=== PATIENT | male | born 1945 | race Two or more races ===

== ENCOUNTER 2024-03-21 07:44 | Outpatient (OUT) | payer OTHER, SELFPAY ==
--- NOTE | 2024-03-21 08:00 | CA_ITS ---
Patient Name: SANA SNOW MR#: [id number] : 1945 Exam Date: 03/21/2024 Ordering Doctor: HERNANDEZ PATRICIO ECHOCARDIOGRAM REPORT PROCEDURE: CA ECHO DOPPLER COMPLETE INDICATIONS: Mitral valve regurgitation, aortic stenosis, hypertension COMPARISON: None. DESCRIPTION: COMPLETE ECHOCARDIOGRAM Real-time transthoracic echocardiography with 2D, M-mode, spectral and color flow Doppler performed. QUALITY: Technical quality was good. LEFT VENTRICLE: Normal chamber size. Proximal septal hypertrophy (sigmoid septum). Normal systolic function. LV EF: Normal left ventricular ejection fraction, (>55%). DIASTOLIC: Diastolic function is indeterminate. ATRIAL SEPTUM: Visually appears intact. LEFT ATRIUM: Normal chamber size. RIGHT ATRIUM: Mild dilatation. RIGHT VENTRICLE: Normal chamber size. Normal right ventricular systolic function. TRICUSPID VALVE: Normal mobility and thickness. No stenosis with trivial regurgitation. MITRAL VALVE: Normal mobility and thickness. No evidence of mitral valve stenosis. There is no mitral annular calcification. Mild mitral regurgitation. AORTIC VALVE: Cannot rule out bicuspid valve. Moderately calcified aortic valve. Moderately diminished mobility. Doppler velocity suggests moderate aortic valve stenosis. DVI 0.4, REGINA 1.2 cm2 (with corrected measurement of LVOT 1.9 cm). Trivial aortic regurgitation. AORTIC ROOT: Mildly dilated measuring 3.9 cm. Ascending aorta is normal in size, measuring 3.4 cm. PULMONIC VALVE: Normal thickness and mobility. No stenosis. Trivial regurgitation. PERICARDIUM: No evidence of pericardial effusion. IVC: Collapses with inspirations. IVC is normal in size. PLEURA: CONCLUSION: 1. Normal left ventricular size and systolic function. LVEF is estimated at 55 to 60%. 2. Normal right ventricular size and systolic function. 3. Cannot rule out bicuspid aortic valve with at least moderate stenosis. 4. Mild mitral regurgitation. 5. Mildly dilated aortic root. 6. A transesophageal echocardiogram can provide better characterization of the aortic valve morphology and function. Adult Echocardiography Procedure Report Left Ventricle LVEDD (3.7 - 5.6 cm): 4.09 cm LVESD (2.2 - 4.0 cm): 2.29 cm LVIVS thickness (0.6 - 1.2 cm): 1.71 cm LVPW thickness (0.5 - 1.0 cm): 0.82 cm e': 0.08 m/s E - e': 8.43 LVOT Max Gradient: 3.33 mm[Hg] LVOT Area (cm2): 0.91 m/s Peak Velocity (LVOT): 0.91 m/s Mean Velocity (LVOT): 0.61 m/s LVOT Diameter 2.54 cm Left Atrium LA Volume Index (2D A2C): 33.54 ml/m2 Left Atrium Systolic Dimension: 3.85 cm Mitral Valve MV E to A Ratio: 0.88 Mitral Valve A-Wave Peak Velocity: 0.78 m/s Mitral Valve E-Wave Peak Velocity: 0.69 m/s Right Ventricle Aorta AO Root Diam: 3.86 cm Ascending Ao Diam: 3.36 cm Aortic Valve AoV Area (Peak Jorge L): 2.23 cm2, 2.23 cm2 AoV Area (VTI): 2.28 cm2, 2.35 cm2 Peak Velocity(Antegrade Flow): 2.08 m/s, 1.99 m/s, 2.02 m/s Peak Gradient(Antegrade Flow): 17.25 mm[Hg], 15.77 mm[Hg], 16.28 mm[Hg] Mean Velocity(Antegrade Flow): 1.40 m/s, 1.44 m/s, 1.44 m/s Mean Gradient(Antegrade Flow): 9.04 mm[Hg], 9.36 mm[Hg], 9.24 mm[Hg] Velocity Time Integral: 54.42 cm, 49.82 cm, 56.09 cm Tricuspid Valve Pulmonic Valve Mean Gradient: 2.48 mm[Hg], 2.54 mm[Hg], 1.87 mm[Hg] Mean Velocity: 0.73 m/s, 0.73 m/s, 0.65 m/s Peak Gradient: 4.25 mm[Hg], 4.73 mm[Hg], 2.80 mm[Hg] Right Atrium Right Atrium Systolic Pressure: 67.38 ml, 67.38 ml Dictated by: Rene Walton M.D. on 03/21/2024 at 18:32 Approved by: Rene Walton M.D. on 03/21/2024 at 18:41
== END 2024-03-21 07:45 | disposition home or self-care (01) ==
PROVIDERS: PCP Internal Medicine; Visit Provider Nurse Practitioner Adult Health
DX: I09.1 Rheumatic diseases of endocardium, valve unspecified (principal)
CPT/HCPCS: 93306

== ENCOUNTER 2025-04-15 09:54 | Outpatient (OUT) | payer MEDICARE, SELFPAY ==
--- NOTE | 2025-04-15 10:00 | CA_ITS ---
Patient Name: SANA SNOW MR#: [id number] : 1945 Exam Date: 04/15/2025 Ordering Doctor: Dr. STORM ALEJANDRA ECHOCARDIOGRAM REPORT PROCEDURE: CA ECHO DOPPLER COMPLETE INDICATIONS: Aortic valve stenosis COMPARISON: None. DESCRIPTION: COMPLETE ECHOCARDIOGRAM Real-time transthoracic echocardiography with 2D, M-mode, spectral and color flow Doppler performed. QUALITY: Technical quality was good. LEFT VENTRICLE: Normal chamber size. Thickened septal wall. LV EF: Global left ventricular systolic function is hyperdynamic; visually estimated ejection fraction is 65 to 70%. No wall motion abnormalities. DIASTOLIC: Unable to assess diastolic function. ATRIAL SEPTUM: Visually appears intact. LEFT ATRIUM: Normal chamber size. RIGHT ATRIUM: Normal chamber size. RIGHT VENTRICLE: Normal chamber size. Normal right ventricular systolic function. TRICUSPID VALVE: Normal mobility and thickness. No stenosis with trivial regurgitation. Unable to accurately estimate right ventricular systolic pressure due to faint tricuspid regurgitation signal. MITRAL VALVE: Normal mobility and thickness. No evidence of mitral valve stenosis. There is no mitral annular calcification. Trivial mitral regurgitation. AORTIC VALVE: The valve is probably tricuspid. Severely calcified aortic valve with diminished mobility. Doppler velocity suggest mild aortic valve stenosis. DVI 0.4, Vmax 2.08 m/s, mean/max 9.6/17.3 mmHg. Trivial aortic regurgitation. AORTIC ROOT: Normal diameter and appearance. Ascending aorta and aortic arch are normal in size. PULMONIC VALVE: Normal thickness and mobility. No stenosis. No regurgitation. PERICARDIUM: No evidence of pericardial effusion. IVC: Collapses with inspiration. CONCLUSION: 1. Global left ventricular systolic function is hyperdynamic; visually estimated ejection fraction is 65 to 70% 2. Normal right ventricular size and systolic function 3. Unable to assess diastolic function 4. The left atrium is normal in size 5. Mild aortic valve stenosis Adult Echocardiography Procedure Report Left Ventricle LVEDD (3.7 - 5.6 cm): 3.73 cm LVESD (2.2 - 4.0 cm): 2.57 cm LVIVS thickness (0.6 - 1.2 cm): 1.80 cm LVPW thickness (0.5 - 1.0 cm): 0.94 cm e': 0.07 m/s E - e': 10.59 LVOT Max Gradient: 3.13 mm[Hg] LVOT Area (cm2): 0.89 m/s Peak Velocity (LVOT): 0.89 m/s Mean Velocity (LVOT): 0.51 m/s LVOT Diameter 1.87 cm Left Ventricular Ejection Fraction: 68.08 % Left Atrium LA Volume Index (2D A2C): 31.73 ml/m2 Left Atrium Systolic Dimension: 3.94 cm Mitral Valve MV E to A Ratio: 0.82 Mitral Valve A-Wave Peak Velocity: 0.87 m/s Mitral Valve E-Wave Peak Velocity: 0.71 m/s Right Ventricle Aorta AO Root Diam: 3.79 cm Ascending Ao Diam: 3.28 cm Aortic Valve AoV Area (Peak Jorge L): 1.17 cm2, 1.33 cm2 AoV Area (VTI): 1.13 cm2, 1.54 cm2 Peak Velocity(Antegrade Flow): 1.84 m/s, 2.08 m/s Peak Gradient(Antegrade Flow): 13.55 mm[Hg], 17.29 mm[Hg] Mean Velocity(Antegrade Flow): 1.19 m/s, 1.42 m/s Mean Gradient(Antegrade Flow): 6.60 mm[Hg], 9.62 mm[Hg] Velocity Time Integral: 39.65 cm, 54.21 cm Tricuspid Valve Peak Velocity (Regurgitant Flow): 2.03 m/s Pulmonic Valve Mean Gradient: 1.74 mm[Hg], 1.84 mm[Hg] Mean Velocity: 0.62 m/s, 0.65 m/s Peak Gradient: 3.16 mm[Hg], 3.03 mm[Hg] Right Atrium Dictated by: Yoanna Madison M.D. on 04/15/2025 at 15:07 Approved by: Yoanna Madison M.D. on 04/15/2025 at 15:19
--- OUTSIDE RECORDS SUMMARY | 2025-04-15 10:01 | XMS_ITS | CCD ---
Author Organization [facility] Care Team Providers Care Regional Branch Manager Name Role Phone MD Niels Barbosa Attending Provider [phone] Niels Barbosa Admitting Unavailable Niels Barbosa Attending Unavailable Alana Milligan DO Unavailable [phone] Alana Milligan DO Primary Care Provider [phone] Melissa Parikh MD Unavailable Margo Sigala DO Unavailable ALANA MILLIGAN Primary Care Physician [phone] Margo Sigala Admitting Unavailable Sigala, Margo Mcgowan Attending Unavailable Sigala, Margo T Referring Unavailable Sigala, Margo T Admitting Unavailable Sigala, Margo Mcgowan Attending Unavailable Sigala, Margo Mcgowan Referring Unavailable SIGALA, MARGO Mcgowan Referring Unavailable PETITTI, MELISSA Seaman Attending Unavailable ALANA MILLIGAN Attending Unavailable SIGALA, MARGO Mcgowan Attending Unavailable SIGALA, MARGO T Referring Unavailable SIGALA, MARGO Mcgowan Attending Unavailable SIGALA, MARGO T Referring Unavailable WARCHOL, DAYSI Attending Unavailable SIGALA, MARGO Mcgowan Attending Unavailable SIGALA, MARGO Mcgowan Referring Unavailable PETITTI, MELISSA Seaman Attending Unavailable SIGALA, MARGO Mcgowan Attending Unavailable SIGALA, MARGO T Referring Unavailable SIGALA, MARGO T Referring Unavailable SIGALA, MARGO Mcgowan Attending Unavailable Medications Current Medications MedicationDrug Class(es)DatesSig (Normalized)Sig (Original)amLODIPine 10 mg oral tablet (20 sources)Dihydropyridine Calcium Channel BlockerStart: 59-57-2653gdpk 1 tablet by mouth once dailyamLODIPine (Norvasc) 10 MG tablet Indications: Primary hypertension TAKE 1 TABLET BY MOUTH EVERY DAY FOR 90 DAYS 90 tablet 3 05/01/2024 ActiveStart: 25-75-0194wlry 1 tablet by mouth once dailyamLODIPine (Norvasc) 10 MG tablet Indications: Primary hypertension (CMS/HCC) TAKE 1 TABLET BY MOUTH EVERY DAY FOR 90 DAYS 90 tablet 3 05/12/2023 Activecholecalciferol 0.05 mg oral capsule (20 sources)Vitamin DStart: 10-67-3909Qwennmliscwiyox (Vitamin D) 50 MCG (1999) capsule 1 capsule. 01/28/2022 Activeeplerenone 50 mg oral tablet (20 sources)Aldosterone AntagonistStart: 33-26-4237ggjf 1 tablet by mouth at mealtimeeplerenone (Inspra) 50 MG tablet Indications: Essential (primary) hypertension TAKE 1 TABLET BY MOUTH IN THE EVENING. TAKE WITH MEALS. 90 tablet 3 03/05/2024 ActivehydroCHLOROthiazide 25 mg / telmisartan 80 mg oral tablet (20 sources)Thiazide Diuretic, Angiotensin 2 Receptor BlockerStart: 01-06-2025 take 1 tablet by mouth once daily in the morningtelmisartan-hydroCHLOROthiazide (MIcarDIS HCT) 80-25 MG tablet Indications: Hypertension, unspecified type TAKE 1 TABLET BY MOUTH EVERY DAY IN THE MORNING 90 tablet 2 01/06/2025 ActiveStart: 80-80-9583ycvz 1 tablet by mouth once daily in the morningtelmisartan- hydroCHLOROthiazide (MIcarDIS HCT) 80-25 MG tablet Indications: Hypertension, unspecified type TAKE 1 TABLET BY MOUTH EVERY DAY IN THE MORNING 90 tablet 2 02/12/2024 Activepravastatin sodium 40 mg oral tablet (20 sources)HMG-CoA Reductase InhibitorStart: 68-82-3405htuo 1 tablet by mouth at bedtimepravastatin (Pravachol) 40 MG tablet Indications: Dyslipidemia Take 1 tablet (40 mg) by mouth at bedtime 90 tablet 3 07/10/2024 ActiveStart: 08-04-3814vzwf 1 tablet by mouth once dailypravastatin (Pravachol) 40 MG tablet Indications: Dyslipidemia (CMS/HCC) TAKE 1 TABLET BY MOUTH EVERY DAY FOR 90 DAYS 90 tablet 3 07/31/2023 Active Completed/Discontinued Medications MedicationDrug Class(es)DatesSig (Normalized)Sig (Original)betamethasone 3 mg/ml / betamethasone acetate 3 mg/ml injectable suspension (8 sources)CorticosteroidStart: 05-15-2024 End: 83-68-8633wkqkequpkuvaw acetate-betamethasone sodium phosphate (Celestone) injection 3 mgStart: 05-15-2024 End: mg, Intra-articular, Once PRN Procedure, Starting on Mon05/15/24 at 1007, For 1 dose Problems Active Problems Problem ClassificationProblemDateDocumented DateEpisodic/ChronicDisorders of lipid metabolism (20 sources)Dyslipidemia; Translations: [Hyperlipidemia, unspecified]Onset: 066711-35-3749ZhzmnumF Codes: Unspecified (2 sources)Does participate in sporting activities; Translations: [Activity, running]96-05-8860LaljejbgWqehgjmok hypertension (20 sources)Essential hypertension; Translations: [Essential (primary) hypertension]Onset: 487616-32-6125MfxrmxeActew valve disorders (20 sources)Rheumatic disease of heart valve; 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, valve unspecified]Onset: 03-06-2023 Resolved: 462892-14-8214JakthsaZpxrajzzw of skin (20 sources)Malignant melanoma of shoulder; Translations: [Malignant melanoma of unspecified upper limb, including shoulder]Onset: hronic Melanomas of skin (5 sources)History of malignant melanoma of the skin; Translations: [Personal history of malignant melanoma ofskin]70-49-3652JtvgdvdsAlmteewkymz deficiencies (2 sources)Vitamin D deficiency; Translations: [Vitamin D deficiency, unspecified]41-11-0128ZlolqntTmuac and unspecified benign neoplasm (4 sources)Multiple benign melanocytic nevi ; Translations: [Melanocytic nevi of right upper limb, including shoulder]36-15-3933KhghkvdlPewbq connective tissue disease (10 sources)Pain of bilateral hands; Translations: [Pain in right hand] 48-31-1051LilqycnsNyhwb connective tissue disease (2 sources)Pain in right thumb; Translations: [Pain in right finger(s)] 37-09-5564OzknbxtmDqjld non-traumatic joint disorders (4 sources)Bilateral wrist pain; Translations: [Pain in right wrist]07-26-2024 EpisodicOther skin disorders (5 sources)Lentiginosis; Translations: [Other melanin hyperpigmentation] 34-02-6490VogtobotVatyx skin disorders (5 sources)Seborrheic keratosis; Translations: [Other seborrheic keratosis] 06-31-4043WsnvbupbLuqhh skin disorders (5 sources)Actinic keratosis; Translations: [Actinic keratosis]2024 EpisodicUnclassified (1 source)Malignant melanoma of right upper limb, including shoulder; Translations: [Malignant melanoma of right upper limb, including shoulder]Onset: 42-36-0704Uftpghfkxxgi (2 sources)Moderate aortic -90-5113 Past or Other Problems Problem ClassificationProblemDateDocumented DateEpisodic/ChronicImmunizations and screening for infectious disease (20 sources)Needs influenza immunization; Translations: [Encounter for immunization]Onset: 03-25-2023 Resolved: 391860-76-9962PzshpamxHzjn disorders (20 sources)Mood disordersOnset: 117891-42-1390Zyupqcxrqprneh (20 sources)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; Translations: [Unilateral primary osteoarthritis of first carpometacarpal joint, left hand] Onset: 03-19-2024 Resolved: 487895-26-0405UciyrsxRvfyi and ill-defined heart disease (20 sources)Diastolic dysfunction; Translations: [Other ill-defined heart diseases]Onset: 08-14-2018 Resolved: 763462-61-6593VqylxikOtwem non-epithelial cancer of skin (20 sources)Squamous cell carcinoma of skin; Translations: [Squamous cell carcinoma of skin, unspecified]Onset: 01-27-2021 Resolved: 966353-40-7934DmntvzqmAalpokz and strains (20 sources)Injury of articular cartilage of left knee joint; Translations: [Sprain of other specified parts ofleft knee, initial encounter]Onset: 11-27-2022 Resolved: 832439-30-7513Khvyrrum Results Test NameValueInterpretationReference RangeFacilityCryotherapy, skin lesionon 22-64-8574ZYMS HealthcareXR Finger - right 2 Viewson 51-75-5660Bdyubpv Result: Three view ,AP, lateral and oblique left wrist xray in the office saved to the permanent record today. Shows stable position and alignment of the bony arthroplasty and graft position. No sign of instability. No significant shortening. Images reviewed with the patient at length.[facility] HospitalRadiology Study observation (narrative)[facility] XR Finger - right 2 Viewson 17-08-8428Sowjtuh Result: Three view x-rays, AP, lateral and oblique views saved to the permanent record shows stable position and alignment of the interpositional. There is no sign of subluxation or dislocation or loosening seen.[facility] CenterXR Finger - right 2 ViewsOrdered By: Margo Sigala on 76-14-7631DKIVMercy Hospital South, formerly [facility] Work Phone: XR Finger - right 2 Viewson 63-76-4679Dypqlfxji Study observation (narrative)[facility] CenterNo Panel Informationon 75-97-0430MHJJMercy Hospital [facility], [facility] Medical CenterXR Finger - right 2 Viewson 68-87-7328Ocpfuii Result: Three view ,AP, lateral and oblique wrist xray in the office saved to the permanent record today. Shows stable position and alignment of the bony arthroplasty and graft position. No sign of instability. No significant shortening. Images reviewed with the patient at length.[facility] HospitalRadiology Study observation (narrative)[facility] Medical CenterBMPon 07-29-2024 Anion gap [Moles/Vol]11 mmol/LNormal6-16[facility]cy Medical CenterComment on above:Performed By: #### [id number] #### [facility] [address], [place] [address]Kaxvrxo [Mass/Vol]10.0 mg/dLNormal8.9-11.1[facility] Medical CenterComment on above:Performed By: #### [id number] #### [facility] [address], [place] [address]Gvxcccju [Moles/Vol]100 mmol/CRiy447-621MNVV HealthcareComment on above:Performed By: #### [id number] #### [facility] [address], [place] [address]US2 [Moles/Vol]29 mmol/XEowcpm21-16AONX HealthcareComment on above:Performed By: #### [id number] #### [facility] [address], [place] [address]Cjcxtnqllh [Mass/Vol]0.9 mg/dLNormal0.5-1.3NOMS [facility] Comment on above:Performed By: #### [id number] #### [facility] [address], [place] [address]Ygeacdu [Mass/Vol]108 mg/dPUsmocv75-529UOPY HealthcareComment on above:Performed By: #### [id number] #### [facility] [address], [place] [address]Uqgntsink [Moles/Vol]4.1 mmol/LNormal3.5-5.3[facility] Comment on above:Performed By: #### [id number] #### [facility] [address], [place] [address]Uggpsc [Moles/Vol]136 mmol/YZpnfjl070-782AGNN HealthcareComment on above:Performed By: #### [id number] #### [facility] [address], [place] [address]Cfmm nitrogen [Mass/Vol]25 mg/dLHigh5-21NOMS HealthcareComment on above:Performed By: #### [id number] #### [facility] [address], [place] [address]Rkpa nitrogen/Creatinine [Mass ratio]28 No VhrybIbuc70-34FqafvaSt. Rita'S HospitalComment on above:Performed By: #### [id number] #### [facility] [address], [place] [address]YFB w/Indiceson 24-92-9283HOC size Nom (Bld)NORMALInvalid Interpretation CodeSt. Rita'S HospitalComment on above:Performed By: #### [id number] #### [facility] [address], [place] [address]Opsollijcnj distribution width (RBC) [Ratio]13.2 %Normal 10.9-14.2[facility] Medical CenterComment on above:Performed By: #### [id number] #### [facility] [address], [place] [address]Ymgrbsanfx (Bld) [Volume fraction]40.6 %Yfbhyk90.7-49.0[facility]'S HospitalComment on above:Performed By: #### [id number] #### [facility] [address], [place] [address]Jepubaqahg (Bld) [Mass/Vol]14.5 g/bRPrwenx21.5-17.5FHarrison Community HospitalComment on above:Performed By: #### [id number] #### [facility] [address] [place] [address]PNF (RBC) [Entitic mass]33.3 xkXzdrgm32.0-34.0St[facility]'S HospitalComment on above:Performed By: #### [id number] #### [facility] [address] [place] [address]EAEL (RBC) [Mass/Vol]35.8 g/aAVhqckm63.4-36.0[facility] HospitalComment on above:Performed By: #### [id number] #### [facility] [address] [place] [address]GBJ (RBC) [Entitic vol]93.0 nTLcwywe75.0-100.0[facility] HospitalComment on above:Performed By: #### [id number] #### [facility] [address] [place] [address]Spsguyne309.0 E9/RFnlcvv129.0-500.0[facility] Comment on above:Performed By: #### [id number] #### [facility] [address] [place] [address]Rrhhskrw mean volume (Bld) [Entitic vol]7.3 fLNormal6.4-10.8 [facility] HospitalComment on above:Performed By: #### [id number] #### [facility] [address] [place] [address]JVI (Bld) [#/Vol]4.4 E12/LNormal4.3-5.9[facility] HospitalComment on above:Performed By: #### [id number] #### [facility] [address], [place] [address]HFH corrected for nucl RBC Auto (Bld) [#/Vol]9.6 E9/LNormal 4.0-11.0[facility] HospitalComment on above:Performed By: #### [id number] #### [facility] [address], [place] [address]LHEMUNKXTMrqrslm By: SYSTEM SYSTEM on 70-74-6083Rxphf gap [Moles/Vol]11 mmol/LNormal6 - 16 mEq/LRemisol ChemCalcium [Mass/Vol]10.0 mg/dL Normal8.9 - 11.1 mg/dLRemisol ChemChloride [Moles/Vol]100 mmol/QZps630 - 111 mmol/LRemisol ChemCO2 [Moles/Vol]29 mmol/HQxkqmi54 - 31 mmol/LRemisol Chem Creatinine [Mass/Vol]0.9 mg/dLNormal0.5 - 1.3 mg/dLRemisol UgadgDPE77 mL/min/1.73 k6Mtmutq>=59mL/min/1.73 j1Ypbzlwk ChemGlucose [Mass/Vol]108 mg/dL Nucsun69 - 199 mg/dLRemisol ChemPotassium [Moles/Vol]4.1 mmol/LNormal3.5 - 5.3 mmol/LRemisol ChemSodium [Moles/Vol]136 mmol/PMfoqim907 - 145 mmol/LRemisol Chem Urea nitrogen [Mass/Vol]25 mg/dLHigh5 - 21 mg/dLRemisol ChemUrea nitrogen/Creatinine [Mass ratio]28 mg/mhZvsv07 - 20Remisol ChemFTMC BMPon 41-55-2395Fiotkat [Mass/Vol]10 mg/dL8.9 - 11.1 mg/dLBarn[facility] ANION GAP:SCNC:PT:SER/PLAS:QN:11NOCedar [facility] UREA NITROGEN/CREATININE:MRTO:PT:SER/PLAS:QN:28HighLDS HOSPITAL HealthcareInterpretation and review of laboratory resultsAbnormalNOMissouri Delta Medical Centeral Ordering Provider: DO Margo Arguelles HealthcareHEMATOLOGYOrdered By: SYSTEM SYSTEM on 38-11-2080Lsgzbygvmzh distribution width (RBC) [Ratio]13.2 %Hbegwx41.9 - 14.2 %Remisol HemeHematocrit (Bld) [Volume fraction]40.6 %Xvzpam47.7 - 49.0 %Remisol HemeHemoglobin (Bld) [Mass/Vol]14.5 g/aEEkoqtv23.5 - 17.5 gm/dLRemisol HemeMCH (RBC) [Entitic mass]33.3 beSxzgov29.0 - 34.0 pgRemisol HemeMCHC (RBC) [Mass/Vol] 35.8 g/cWYkayeg02.4 - 36.0 gm/dLRemisol HemeMCV (RBC) [Entitic vol]93.0 fLNormal 80.0 - 100.0 fLRemisol HqitKwztbkxo746.0 E9/EVtdhte933.0 - 500.0 E9/LRemisol HemePlatelet mean volume (Bld) [Entitic vol]7.3 fLNormal6.4 - 10.8 fLRemisol HemeRBC (Bld) [#/Vol]4.4 E12/LNormal4.3 - 5.9 E12/LRemisol HemeRBC size Nom (Bld)NORMAL *NA* (07/29/24 3:34 PM)Invalid Interpretation CodeRemisol HemeWBC corrected for nucl RBC Auto (Bld) [#/Vol]9.6 E9/LNormal4.0 - 11.0 E9/LRemisol HemeeGFRon 07-29-2024 eGFR86 mL/min/1.73 c5Otnptg>=59Fisher [facility] Medical CenterComment on above: Performed By: #### [id number] #### [facility] [address] [place], [place] [address]Ph Panel Informationon 29-64-7914Nhfvii Smith, [place] 05/16/2024 4:32 PM S Inj/Asp: bilateral thumb MCP on 05/15/2024 10:07 AM Details: 25 G needle, ultrasound-guided Medications (Right): 3 mg betamethasone acetate-betamethasone sodium phosphate 6 (3-3) MG/ML Medications (Left): 3 mg betamethasone acetate-betamethasone sodium phosphate 6 (3-3) MG/ML Outcome: tolerated well, no immediate complications Consent was given by the patient. WON BeckerTN ECHO DOPPLER COMPLETEon 76-52-7682EcyStephanie V[place] [id number] Cardiology Report Signed Patient: JESI MONTES MR#: [id number] : 1945 Acct:[id number] Age/Sex: 79 / M ADM Date: 03/21/24 Loc: CARD Attending Dr: Hernandez Patricio NP Ordering Physician: Hernandez Patricio NP Date of Service: 03/21/24 Procedure(s): CA echo doppler complete Accession Number(s): [id number] cc: Hernandez Patricio NP; ALANA MILLIGAN Patient Name: JESI MONTES MR#: [id number] : 1945 Exam Date: 03/21/2024 Ordering Doctor: HERNANDEZ PATRICIO ECHOCARDIOGRAM REPORT PROCEDURE: CA ECHO DOPPLER COMPLETE INDICATIONS: Mitral valve regurgitation, aortic stenosis, hypertension COMPARISON: None. DESCRIPTION: COMPLETE ECHOCARDIOGRAM Real-time transthoracic echocardiography with 2D, M-mode, spectral and color flow Doppler performed. QUALITY: Technical quality was good. LEFT VENTRICLE: Normal chamber size. Proximal septal hypertrophy (sigmoid septum). Normal systolic function. LV EF: Normal left ventricular ejection fraction, (>55%). DIASTOLIC: Diastolic function is indeterminate. ATRIAL SEPTUM: Visually appears intact. LEFT ATRIUM: Normal chamber size. RIGHT ATRIUM: Mild dilatation. RIGHT VENTRICLE: Normal chamber size. Normal right ventricular systolic function. TRICUSPID VALVE: Normal mobility and thickness. No stenosis with trivial regurgitation. MITRAL VALVE: Normal mobility and thickness. No evidence of mitral valve stenosis. There is no mitral annular calcification. Mild mitral regurgitation. AORTIC VALVE: Cannot rule out bicuspid valve. Moderately calcified aortic valve. Moderately diminished mobility. Doppler velocity suggests moderate aortic valve stenosis. DVI 0.4, REGINA 1.2 cm2 (with corrected measurement of LVOT 1.9 cm). Trivial aortic regurgitation. AORTIC ROOT: Mildly dilated measuring 3.9 cm. Ascending aorta is normal in size, measuring 3.4 cm. PULMONIC VALVE: Normal thickness and mobility. No stenosis. Trivial regurgitation. PERICARDIUM: No evidence of pericardial effusion. IVC: Collapses with inspirations. IVC is normal in size. PLEURA: CONCLUSION: 1. Normal left ventricular size and systolic function. LVEF is estimated at 55 to 60%. 2. Normal right ventricular size and systolic function. 3. Cannot rule out bicuspid aortic valve with at least moderate stenosis. 4. Mild mitral regurgitation. 5. Mildly dilated aortic root. 6. A transesophageal echocardiogram can provide better characterization of the aortic valve morphology and function. Adult Echocardiography Procedure Report Left Ventricle LVEDD (3.7 - 5.6 cm): 4.09 cm LVESD (2.2 - 4.0 cm): 2.29 cm LVIVS thickness (0.6 - 1.2 cm): 1.71 cm LVPW thickness (0.5 - 1.0 cm): 0.82 cm e': 0.08 m/s E - e': 8.43 LVOT Max Gradient: 3.33 mm[Hg] LVOT Area (cm2): 0.91 m/s Peak Velocity (LVOT): 0.91 m/s Mean Velocity (LVOT): 0.61 m/s LVOT Diameter 2.54 cm Left Atrium LA Volume Index (2D A2C): 33.54 ml/m2 Left Atrium Systolic Dimension: 3.85 cm Mitral Valve MV E to A Ratio: 0.88 Mitral Valve A-Wave Peak Velocity: 0.78 m/s Mitral Valve E-Wave Peak Velocity: 0.69 m/s Right Ventricle Aorta AO Root Diam: 3.86 cm Ascending Ao Diam: 3.36 cm Aortic Valve AoV Area (Peak Jorge L): 2.23 cm2, 2.23 cm2 AoV Area (VTI): 2.28 cm2, 2.35 cm2 Peak Velocity(Antegrade Flow): 2.08 m/s, 1.99 m/s, 2.02 m/s Peak Gradient(Antegrade Flow): 17.25 mm[Hg], 15.77 mm[Hg], 16.28 mm[Hg] Mean Velocity(Antegrade Flow): 1.40 m/s, 1.44 m/s, 1.44 m/s Mean Gradient(Antegrade Flow): 9.04 mm[Hg], 9.36 mm[Hg], 9.24 mm[Hg] Velocity Time Integral: 54.42 cm, 49.82 cm, 56.09 cm Tricuspid Valve Pulmonic Valve Mean Gradient: 2.48 mm[Hg], 2.54 mm[Hg], 1.87 mm[Hg] Mean Velocity: 0.73 m/s, 0.73 m/s, 0.65 m/s Peak Gradient: 4.25 mm[Hg], 4.73 mm[Hg], 2.80 mm[Hg] Right Atrium Right Atrium Systolic Pressure: (more content not included)...TBHRadiology, Radiologist, MD - 03/21/2024 [place] [address] Cardiology Report Signed Patient: JESI MONTES MR#: [id number] : 1945 Acct:[id number] Age/Sex: 79 / M ADM Date: 03/21/24 Loc: CARD Attending Dr: Hernandez Patricio NP Ordering Physician: Hernandez Patricio NP Date of Service: 03/21/24 Procedure(s): CA echo doppler complete Accession Number(s): [id number] cc: Hernandez Patricio NP; ALANA MILLIGAN Patient Name: JESI MONTES MR#: [id number] : 1945 Exam Date: 03/21/2024 Ordering Doctor: HERNANDEZ PATRICIO ECHOCARDIOGRAM REPORT PROCEDURE: CA ECHO DOPPLER COMPLETE INDICATIONS: Mitral valve regurgitation, aortic stenosis, hypertension COMPARISON: None. DESCRIPTION: COMPLETE ECHOCARDIOGRAM Real-time transthoracic echocardiography with 2D, M-mode, spectral and color flow Doppler performed. QUALITY: Technical quality was good. LEFT VENTRICLE: Normal chamber size. Proximal septal hypertrophy (sigmoid septum). Normal systolic function. LV EF: Normal left ventricular ejection fraction, (>55%). DIASTOLIC: Diastolic function is indeterminate. ATRIAL SEPTUM: Visually appears intact. LEFT ATRIUM: Normal chamber size. RIGHT ATRIUM: Mild dilatation. RIGHT VENTRICLE: Normal chamber size. Normal right ventricular systolic function. TRICUSPID VALVE: Normal mobility and thickness. No stenosis with trivial regurgitation. MITRAL VALVE: Normal mobility and thickness. No evidence of mitral valve stenosis. There is no mitral annular calcification. Mild mitral regurgitation. AORTIC VALVE: Cannot rule out bicuspid valve. Moderately calcified aortic valve. Moderately diminished mobility. Doppler velocity suggests moderate aortic valve stenosis. DVI 0.4, REGINA 1.2 cm2 (with corrected measurement of LVOT 1.9 cm). Trivial aortic regurgitation. AORTIC ROOT: Mildly dilated measuring 3.9 cm. Ascending aorta is normal in size, measuring 3.4 cm. PULMONIC VALVE: Normal thickness and mobility. No stenosis. Trivial regurgitation. PERICARDIUM: No evidence of pericardial effusion. IVC: Collapses with inspirations. IVC is normal in size. PLEURA: CONCLUSION: 1. Normal left ventricular size and systolic function. LVEF is estimated at 55 to 60%. 2. Normal right ventricular size and systolic function. 3. Cannot rule out bicuspid aortic valve with at least moderate stenosis. 4. Mild mitral regurgitation. 5. Mildly dilated aortic root. 6. A transesophageal echocardiogram can provide better characterization of the aortic valve morphology and function. Adult Echocardiography Procedure Report Left Ventricle LVEDD (3.7 - 5.6 cm): 4.09 cm LVESD (2.2 - 4.0 cm): 2.29 cm LVIVS thickness (0.6 - 1.2 cm): 1.71 cm LVPW thickness (0.5 - 1.0 cm): 0.82 cm e': 0.08 m/s E - e': 8.43 LVOT Max Gradient: 3.33 mm[Hg] LVOT Area (cm2): 0.91 m/s Peak Velocity (LVOT): 0.91 m/s Mean Velocity (LVOT): 0.61 m/s LVOT Diameter 2.54 cm Left Atrium LA Volume Index (2D A2C): 33.54 ml/m2 Left Atrium Systolic Dimension: 3.85 cm Mitral Valve MV E to A Ratio: 0.88 Mitral Valve A-Wave Peak Velocity: 0.78 m/s Mitral Valve E-Wave Peak Velocity: 0.69 m/s Right Ventricle Aorta AO Root Diam: 3.86 cm Ascending Ao Diam: 3.36 cm Aortic Valve AoV Area (Peak Jorge L): 2.23 cm2, 2.23 cm2 AoV Area (VTI): 2.28 cm2, 2.35 cm2 Peak Velocity(Antegrade Flow): 2.08 m/s, 1.99 m/s, 2.02 m/s Peak Gradient(Antegrade Flow): 17.25 mm[Hg], 15.77 mm[Hg], 16.28 mm[Hg] Mean Velocity(Antegrade Flow): 1.40 m/s, 1.44 m/s, 1.44 m/s Mean Gradient(Antegrade Flow): 9.04 mm[Hg], 9.36 mm[Hg], 9.24 mm[Hg] Velocity Time Integral: 54.42 cm, 49.82 cm, 56.09 cm Tricuspid Valve Pulmonic Valve Mean Gradient: 2.48 mm[Hg], 2.54 mm[Hg], 1.87 mm[Hg] Mean Velocity: 0.73 m/s, 0.73 m/s, 0.65 m/s Peak Gradient: 4.25 mm[Hg], 4.73 mm[Hg], 2.80 mm[Hg] Right Atrium Right Atrium Systolic Pressure: 67.38 ml, 67.38 ml Dictated by: Anabella Navarro M.D. on 03/21/2024 at 18:32 Approved by: Anabella Navarro M.D. on 03/21/2024 at 18:41 Dictated By: ANABELLA NAVARRO Signed By: 03/21/241841 DD/ 40 TD/TT: Leather Etcher: [facility] CenterRadiology Study observation (narrative)[facility] ECHO DOPPLER COMPLETEOrdered By: Radiologist Radiology on 67-81-6580ZDATMercy Hospital South, formerly [facility] Work Phone: cbc W Auto Differential panel (Bld)on 03-20-2024 Basophils (Bld) [#/Vol]0 10*3/uLNOMS HealthcareBasophils/100 WBC (Bld)1 %Not Estab.[facility] CenterEosinophils (Bld) [#/Vol]0 10*3/uLNOMS Healthcare Eosinophils/100 WBC (Bld)0 %Not Estab.[facility] Medical CenterErythrocyte distribution width (RBC) [Ratio]11.8 %11.6 - 15.4 %[facility] CenterHematocrit (Bld) [Volume fraction]43 %37.5 - 51.0 %[facility] CenterHemoglobin (Bld) [Mass/Vol]14.6 g/dL 13.0 - 17.7 g/dLNOMS HealthcareImmature granulocytes (Bld) [#/Vol]0 10*3/uLNOMS HealthcareImmature granulocytes/100 WBC (Bld)0 %Not Estab.[facility] Center Lymphocytes (Bld) [#/Vol]1.7 10*3/uLNOMS HealthcareLymphocytes/100 WBC (Bld)24 % Not Estab.[facility] CenterMCH (RBC) [Entitic mass]32.7 pg26.6 - 33.0 pgMercy [facility], formerly [facility] [facility]'s Medical CenterMCHC (RBC) [Mass/Vol]34 g/dL31.5 - 35.7 g/dLSaint Joseph Hospital WestV (RBC) [Entitic vol]96 fL79 - 97 fLLDS HOSPITAL HealthcareMonocytes (Bld) [#/Vol]0.6 10*3/uL [facility] HealthcareMonocytes/100 WBC (Bld)9 %Not Estab.[facility] HealthcareNeutrophils (Bld) [#/Vol]4.5 10*3/uLNONH HealthcareNeutrophils/100 WBC (Bld)66 %Not Estab. [facility] HealthcarePlatelets (Bld) [#/Vol]283 10*3/uLNONH HealthcareRBC (Bld) [#/Vol]4.47 10*6/uLNONH HealthcareWBC (Bld) [#/Vol]6.8 10*3/uLMercy Hospital [facility], formerly [facility] Comprehensive metabolic panelon 06-53-2308Pokeefr [Mass/Vol]4.8 g/dLHigh3.7 - 4.7 g/dLLDS [facility] HealthcareALP [Catalytic activity/Vol]97 U/LNOMS HealthcareALT [Catalytic activity/Vol]29 U/LNOMS HealthcareAST [Catalytic activity/Vol]27 U/L [facility] HealthcareBilirubin [Mass/Vol]0.5 mg/dL0.0 - 1.2 mg/dLMercy Hospital [facility], [facility] Calcium [Mass/Vol]9.8 mg/dL8.6 - 10.2 mg/dLLDS [facility] HealthcareChloride [Moles/Vol] 101 mmol/L96 - 106 mmol/LNOMS HealthcareCO2 [Moles/Vol]23 mmol/L20 - 29 mmol/L [facility] HealthcareCreatinine [Mass/Vol]0.92 mg/dL0.76 - 1.27 mg/dLMercy Hospital [facility], formerly [facility] GFR/1.73 sq M.predicted among non-blacks MDRD (S/P/Bld) [Vol rate/Area]84 mL/min/{1.73_m2}59 - PINF mL/min/1.73NOMS HealthcareGlobulin (S) [Mass/Vol]2.5 g/dL1.5 - 4.5 g/dLNONH HealthcareGlucose [Mass/Vol]104 mg/mGEhti06 - 99 mg/dL [facility] HealthcareInterpretation and review of laboratory resultsAbnormalNOMS HealthcarePotassium [Moles/Vol]4 mmol/L3.5 - 5.2 mmol/LNOMS HealthcareProtein [Mass/Vol]7.3 g/dL6.0 - 8.5 g/dLNONH HealthcareSodium [Moles/Vol]138 mmol/L134 - 144 mmol/LNOMS HealthcareUrea nitrogen [Mass/Vol]16 mg/dL8 - 27 mg/dLNONH HealthcareUrea nitrogen/Creatinine [Mass ratio]17 mg/mg10 - 24NOJohn J. [facility] Lipid 1996 panelon 94-14-9881Ujdhedgeihg [Mass/Vol]173 mg/dL100 - 199 mg/dLNOJohn J. Pershing VA Medical CenterCholesterol in HDL [Mass/Vol]71 mg/dL39 - PINF mg/dLNOJohn J. [facility] Cholesterol in LDL [Mass/Vol]86 mg/dL0 - 99 mg/dLNOJohn J. Pershing VA Medical CenterCholesterol in VLDL [Mass/Vol]16 mg/dL5 - 40 mg/dLNOJohn J. Pershing VA Medical CenterTriglyceride [Mass/Vol]87 mg/dL0 - 149 mg/dLMercy Hospital [facility], formerly [facility]. [facility]'s Medical CenterNo Panel Informationon 37-10-6518Onbvoosvr at: [address] [place] [id number] Nuclear Reactor Engineer: Andrea Padron PhD, Phone: [phone] Hospital Center Specimen Status Reporton 36-29-4348Gengokptfmd Disk diffusion (KB) [[facility]]Comment NOMS HealthcareComment on above:Chelsey Aguillon CMP14 Default Chelsey Aguillon CMP14 Default A hand-written panel/profile was received from your office. In accordance with the [facility] Ambiguous Test Code Policy dated November 2002, we have completed your order by using the closest currently or formerly recognized AMA panel. We have assigned Comprehensive Metabolic Panel (14), Test Code #338896 to this request. If this is not the testing you wished to receive on this specimen, please contact the [facility] Client Inquiry/Technical Services Department to clarify the test order. We appreciate your business. Chelsey Aguillon LP Default Chelsey Aguillon LP Default A hand-written panel/profile was received from your office. In accordance with the [facility] Ambiguous Test Code Policy dated November 2002, we have completed your order by using the closest currently or formerly recognized AMA panel. We have assigned Lipid Panel, Test Code #803033 to this request. If this is not the testing you wished to receive on this specimen, please contact the [facility] Client Inquiry/Technical Services Department to clarify the test order. We appreciate your business. No Panel Informationon [id number] Behavioral Health Services 04-26-2022L Specimen: [id number] Received: 04/27/22 Status: TERRY Ochoasabrina Num: [id number] Spec Type: Surgical Subm Dr: Niels Barbosa MD Tissues: A Skin-Other than Cyst, tag, debridement or plastic repair (RT SHOULDER) Procedures: MART 1/ADEEL A/8, HE/8, Gross/Micro L4, IHC First AB, RECUT/3 Age/ Patient Sex Location Account Attending Physician Jesi Montes 77/M [place] [id number] Niels Barbosa MD SPEC NUM: [id number] RECD: 04/27/22 STATUS: TERRY JEROME NUM: [id number] CELY: 04/26/22 [facility] DR: Niels Barbosa MD ENTERED: 04/27/22 [facility] DR: TOMASZ TYPE: Surgical DEPT: S ORDERED: MART 1/ADEEL A/8, HE/8, Gross/Micro L4, IHC First AB, RECUT/3 ORDERED: MART 1/ADEEL A/8, HE/8, Gross/Micro L4, IHC First AB, RECUT/3 Supplemental Report Addendum 1 Entered: 05/06/22 The case was sent to [facility], with their interpretation as follows: SCAR AND WOUND REPAIR REACTION, NO RESIDUAL MELANOMA IDENTIFIED. Comment: There is no evidence of residual melanoma as previously identified in [id number]. The increase in epidermal basal layer melanocytes is regarded as secondary to actinic damage, and not residual melanoma. The slides from the original specimen were reviewed. This material was reviewed with Dr. Mosley. Please see [facility] report (Path#: [id number]) for further details. Addendum Signed (signature on file) Sameer Diamond MD 05/06/22 1149 Specimen: [id number] Received: 04/27/22 Status: TERRY Jerome Num: [id number] Spec Type: Surgical Subm Dr: Niels Barbosa MD Tissues: A Skin-Other than Cyst, tag, debridement or plastic repair (RT SHOULDER) Procedures: MART 1/ADEEL A/8, HE/8, Gross/Micro L4, IHC First AB, RECUT/3 Patient: Jesi Montes [id number] (Continued) Specimen: [id number] Received: 04/27/22 (Continued) Signed (signature on file) Sameer Diamond MD 04/29/22 1759 Specimen: [id number] Received: 04/27/22 Status: TERRY Jerome Num: [id number] Spec Type: Surgical Subm Dr: Niels Barbosa MD Tissues: A Skin-Other than Cyst, tag, debridement or plastic repair (RT SHOULDER) Procedures: MART /ADEEL A, HE8, Gross/Micro L4, IHC First AB, RECUT/3 Patient: Jesi Montes [id number] (Continued) Specimen: [id number] Received: 04/27/22 (Continued) Pathological Diagnosis Skin, right shoulder, reexcision: - Diffuse solar elastosis and minute non-marginal focus of increased epidermal melanocytes, as highlighted by Melan A. (See Comment.) COMMENT: Focus in question possibly due to tangential sectioning. Materials sent to [facility] for consultation and continuity of care (comparison with previous shave biopsy). Leave Manager diagnosis will follow in a supplemental report. Clinical Information Nonhealing lesion reexcision biopsy, C43.61malignant melanoma of right upper limb including shoulder Gross Description Received in formalin labeled with the patient's name, number and right shoulder, stitch at 12 is a 5.5 x 3.0 x 0.7 cm ellipse of li skin with a central 1.0 x 1.0 cm toscano white macule with central ulceration. There is a suture at one tip designating 12 o'clock the 12- 3 to 6 o'clock margin is inked blue, the six to 9 o'clock margin is inked black and the nine to 12 o'clock margin is inked yellow. The specimen is sectioned transversely from 12 o'clock to 6 o'clock. Entirely submitted in 8 cassettes as follows: A1 - 12 o'clock tip A2-A4 - 12 o'clock half of lesional area A5-A7 - 6 o'clock half of lesional area A8 - 6 o'clock tip Microscopic Description Eight glass slides with H E stained material have been examined. Melan A highlights usual distribution of melanocytes, focally increased in block A7, possibly tangential. Immunosta (more content not included)...NormalFostoria City Hospital Vital Signs Date TimeVital SignValuePerforming QwstvptwrMjiptjxb33-32-0723 10:49-0400Body grizfl555.2 cmRobert 3dplusme Phone: UnisfairTlynybgsft02-04-2328 10:49-0400Body mass index (BMI) [Ratio]26.52 kg/m1LakiibBirthday Gorilla Phone: UnisfairRlhcsxdktq71-71-0788 10:49-0400Body .79 kgRobnorthern navajo medical center 3dplusme Phone: UnisfairVpguoiolyp48-60-2984 10:49-0400Diastolic blood mm[Hg]Alana HilliardIndiaHomes Phone: noproVITALLarvncdbfg60-35-4847 10:49-0400Heart rate74 /min Alana HilliardIndiaHomes Phone: noproVITALDltalsuhug74-04-4717 10:49-2736IqJ0% (BldA) [Mass fraction]94 %Alana Hilliardk DO Work Phone: [facility] CenterJmjgazxlwn65-70-8801 10:49-0400Systolic blood chxeljxu977 mm[Hg]Alana Milligan DO Work Phone: [facility] CenterYwszqnpvlt12-90-7457 09:52-0400Body ylbxrc579.2 cmMichael Sigala DO Work Phone: noJohn J. Pershing [facility] Medical CenterYshqzncwqw87-00-0427 09:52-0400Body mass index (BMI) [Ratio]26.63 kg/d3Zpswuya Sigala DO Work Phone: [facility] CenterAghfibyucq31-75-2144 09:52-0400Body covrkr39.11 kgMichael Sigala DO Work Phone: [facility] CenterZmliympluu36-45-7467 10:01-0400Body ktghuh383.2 cmMichael Sigala DO Work Phone: [facility] CenterFixdeeyder56-94-3326 10:01-0400Body mass index (BMI) [Ratio]26.63 kg/l3Bnnqyjy Sigala DO Work Phone: [facility] CenterPfvlmbsyuk59-58-0413 10:01-0400Body mqcibv34.11 kgMichael Sigala DO Work Phone: [facility] CenterIihmnfvwse35-43-7240 10:00-0400Body hiruyr543.2 cmAdoreen Francoischol SENIOR SECURITY ANALYST Work Phone: [facility] CenterTreokzksfo81-24-0500 10:00-0400Body mass index (BMI) [Ratio]26.63 kg/m2Amy Alessandrochol SENIOR SECURITY ANALYST Work Phone: [facility] CenterMyobzmfylj99-20-5230 10:00-0400Body .11 kgAmy Alessandrochol SENIOR SECURITY ANALYST Work Phone: [facility] CenterWgogzwasrw90-43-2103 10:00-0400Diastolic blood tzqfktuk49 mm[Hg]Daysi Mccrary SENIOR SECURITY ANALYST Work Phone: [facility] CenterMkthnnuyyx03-17-1213 10:00-0400Heart rate80 /min Daysi Mccrary SENIOR SECURITY ANALYST Work Phone: [facility] CenterFblkokdnak17-75-4603 10:00-2917TsB1% (BldA) [Mass fraction]98 %Daysi Mccrary SENIOR SECURITY ANALYST Work Phone: AZJohn J. Pershing VA Medical CenterNbiuixnsdc12-45-8833 10:00-0400Systolic blood mm[Hg]Daysi Mccrary SENIOR SECURITY ANALYST Work Phone: BXJohn J. Pershing VA Medical CenterOlzuyrdqww90-59-5617 13:48-0400Body lmxmop354.2 cmMichael Sigala DO Work Phone: [facility] CenterTlxvartzqb83-83-6387 13:48-0400Body mass index (BMI) [Ratio]26 kg/n8Mtboqzi Sigala DO Work Phone: [facility] CenterUgglckxjch79-80-0089 13:48-0400Body lyvkbw76.3 kg Margo Sigala DO Work Phone: [facility] CenterRclubpchmv30-88-9391 10:32-0500Body zfamxe488.2 cmMichael Sigala DO Work Phone: [facility] CenterLmqkjhflxk60-55-7308 10:32-0500Body mass index (BMI) [Ratio]26 kg/e7Uivkpbx Sigala DO Work Phone: PMJohn J. Pershing VA Medical CenterHenqspfqgv86-14-0064 10:32-0500Body zagtei65.3 kg Margo Sigala DO Work Phone: [facility] CenterTnrlipknts94-10-2176 10:08-0500Body vywuwf089.2 cmMichael Sigala DO Work Phone: [facility] CenterCqutditxph41-75-2294 10:08-0500Body mass index (BMI) [Ratio]26 kg/k4Pptkrpc Sigala DO Work Phone: [facility] CenterDxqbaaoohr39-52-5950 10:08-0500Body fgwwyf84.3 kg Margo Sigala DO Work Phone: [facility] CenterAboualzynu08-40-1654 09:31-0400Body tuuxne470.2 cmRobert Vaschak DO Work Phone: [facility] CenterDxugttsbrc44-10-5695 09:31-0400Body mass index (BMI) [Ratio]26 kg/n8Ytkqcs Vaschak DO Work Phone: [facility] CenterKgubkuuunq71-37-6630 09:31-0400Body .3 kg Alana Milligan DO Work Phone: noms Orjqwyhbcj92-93-4855 09:31-0400Diastolic blood qizaoqzg07 mm[Hg]Alana Milligan DO Work Phone: no Hgvtdhusbn60-36-7219 09:31-0400Heart rate75 /min Alana Milligan DO Work Phone: noJohn J. Pershing VA Medical CenterCyersvnwtf34-36-5905 09:31-6952EpC1% (BldA) [Mass fraction]98 %Alana Milligan DO Work Phone: noJohn J. Pershing VA Medical CenterDeiebeonok27-29-8424 09:31-0400Systolic blood bsdmnmte826 mm[Hg]Alana Milligan DO Work Phone: [facility] Encounters Encounter DateEncounter TypeCare ProviderFacilityStart: 03-18-2025 End: 71-11-5181Tcxwqg outpatient visit 25 minutesRobert Mateusz Milligan DO Work Phone: [facility] Internal MedicineComment on above:Mitral regurgitation and aortic stenosis (Primary Dx); Primary hypertension; Elevated lipoprotein A level; Dyslipidemia; Exercise involving runningStart: 03-18-2025 End: 64-02-1881qsfaybvbkuONTIAM J VASCHAKNot AvailableStart: 03-12-2025 End: 81-98-5922Bxnrtz Shelbie Parikh MD Work Phone: no [place] DermatologyStart: 03-12-2025 End: 22-34-1706Ttcgmydot Parikh MD Work Phone: no [place] DermatologyStart: 03-12-2025 End: 68-25-2372Luyxkj outpatient visit 15 minutesEmyosvany Parikh MD Work Phone: noNH [place] DermatologyComment on above:Seborrheic keratosis (Primary Dx); Lentigines; Actinic keratosis; History of malignant melanoma of skinStart: 03-12-2025 End: 18-34-0874vlswdqwgskWOKJF A PETITTINot AvailableStart: 11-21-2024 End: 83-76-4660Afwhxpl encounter procedureMichael T Sigala DO Work Phone: noms NB ORTHOComment on above:Pain of right thumb (Primary Dx)Start: 11-21-2024 End: 58-36-4024qiskufziluRMYBGWP T POWERSNot AvailableStart: 11-21-2024 End: 50-84-2802qkznfxhsxxOZUXCVA T POWERSNot AvailableStart: 09-24-2024 End: 53-58-3809Mcbdkyd encounter procedureMichael T Sigala DO Work Phone: noms NB ORTHOComment on above:Bilateral hand pain (Primary Dx)Start: 09-24-2024 End: 93-82-9525quqkktudkxXIXDTFA T POWERSNot AvailableStart: 09-24-2024 End: 70-41-7521fyzmvndkkaSLUOQXT T POWERSNot AvailableStart: 09-17-2024 End: 89-35-2192Ufrbjr outpatient visit 25 minutesAmy Demetra SENIOR SECURITY ANALYST Work Phone: noms [facility] IMComment on above:Medicare annual wellness visit, subsequent (Primary Dx); Essential (primary) hypertension (CMS/HCC); Dyslipidemia (CMS/HCC); Elevated lipoprotein A level (CMS/HCC); Hypovitaminosis D; Diastolic dysfunctionStart: 09-17-2024 End: 44-64-7010Oorxwrv encounter procedureAmy Demetra SENIOR SECURITY ANALYST Work Phone: [facility] Work Phone: Start: 09-17-2024 End: 55-24-1629npedqdictoXCD WARCHOLNot AvailableStart: 09-09-2024 End: 99-76-4117Kfhfby flowsheetEmyosvany Parikh MD Work Phone: noms SWS DERMStart: 09-09-2024 End: 87-61-1654Znnrgu flowsheetEmyosvany Parikh MD Work Phone: noms SWS DERMStart: 09-09-2024 End: 85-19-7263Reyxih outpatient visit 15 minutesEmily A Petitti MD Work Phone: NOVH SWS DERMComment on above:Seborrheic keratosis (Primary Dx); Lentigines; Actinic keratosis; Multiple benign melanocytic nevi of both upper extremities, both lower extremities, and trunk; History of malignant melanoma of skinStart: 09-09-2024 End: 65-45-0848njpxumtnqlASJGZ A PETITTINot AvailableStart: 08-27-2024 End: 75-50-5144Vbyclhk encounter procedureMichael T Sigala DO Work Phone: NOMS NB ORTHOComment on above:Bilateral wrist pain (Primary Dx); Bilateral hand painStart: 08-27-2024 End: 16-33-6139eiiklxrbrmWGRSMAZ T POWERSNot AvailableStart: 08-27-2024 End: 31-90-0619exymiztrheYTHJCFN T POWERSNot AvailableStart: 07-29-2024 End: 83-99-6442mdmiuocktjRobpmyo T PowersFacility:FTMCStart: 07-29-2024 End: 23-93-3936Sguokhm encounter procedureMichael T Sigala [facility] Start: 07-29-2024 End: 64-08-9580Cdlpimoko Result EncounterMichael T Sigala DO Work Phone: NOMS External Department UnsolicitedStart: 07-29-2024 End: 55-32-9061Oljmxojgi Result EncounterMichael T Sigala DO Work Phone: [facility]OM[facility] External Department UnsolicitedStart: 07-25-2024 End: 19-29-5048Kbfjtj flowsheetMichael T Sigala DO Work Phone: NOMS ORTHOStart: 07-25-2024 End: 90-76-8394Pmupth flowsheetMichael T Sigala DO Work Phone: [phone] ORTHOStart: 07-25-2024 End: 88-75-7640Chewbzx encounter procedureMichael T Sigala DO Work Phone: noMS NB ORTHOComment on above:Pre-op testing (Primary Dx); Bilateral hand pain; Bilateral wrist painStart: 07-25-2024 End: 30-76-4958Yxwmzjh encounter statusMichael T Sigala DO Work Phone: noms HealthcareStart: 07-25-2024 End: 25-61-8635hntnowuknyQPNPUAK T POWERSNot AvailableStart: 05-15-2024 End: 22-70-4461Sflyfe flowsheetMichael T Sigala DO Work Phone: NOMS SWS ORTHOAOStart: 05-15-2024 End: 08-73-6058Xyqwdk flowsheetMichael T Sigala DO Work Phone: NOUF SWS ORTHOAOStart: 05-15-2024 End: 63-44-5556Enmbqxy encounter procedureMichael T Sigala DO Work Phone: NOXR SWS ORTHOAOComment on above:Bilateral hand pain (Primary Dx)Start: 05-15-2024 End: 98-86-7799ztctzzxxhzXLMAXWX T POWERSNot AvailableStart: 03-21-2024 End: 41-59-1832Shzxoijaz Result EncounterGeneric External Data ProviderNOMS External Department UnsolicitedStart: 03-21-2024 End: 25-97-9847Kkowkepuv Result EncounterGeneric External Data ProviderNOMS External Department UnsolicitedStart: 03-19-2024 End: 02-67-4896Jgceus Toni Patricio NP Work Phone: noms External Department UnsolicitedStart: 03-19-2024 End: 74-73-2644Pzolpa outpatient visit 25 minutesRobert Mateusz Milligan DO Work Phone: noms [facility] IMComment on above:Primary hypertension (CMS/HCC) (Primary Dx); Diastolic dysfunction; Rheumatic disease of heart valve; Arthritis of carpometacarpal (CMC) joint of left thumb; Arthritis of carpometacarpal (CMC) joint of right thumbStart: 2024 End: 77-45-8265Pfyzqw Shelbie Parikh MD Work Phone: noms SWS DERMStart: 2024 End: 16-71-3408Hpeync flowsheetEmyosvany Parikh MD Work Phone: noms [facility] DERMStart: 2024 End: 00-18-7132Umhphw outpatient visit 15 minutesEmyosvany Parikh MD Work Phone: noms [facility] DERMComment on above:Seborrheic keratosis (Primary Dx); Lentigines; Multiple benign melanocytic nevi of both upper extremities, both lower extremities, and trunk; Actinic keratosis; History of malignant melanoma of skinStart: 04-26-2022 End: 11-73-6436lsjconrnonDtlrxas Surfsanta [facility] hospitalFacility:[facility] Centertart: 04-26-2022 End: 64-86-1648xrcqkswmnjND [facility] Work Phone: [facility] Work Phone: Start: 04-26-2022 End: 27-36-6657Rrxhubxs ReferredMD [facility] Work Phone: [facility] [place] Procedures DateProcedureProcedure DetailPerforming ClinicianStart: 19-14-4736PTFQLZINKNZ SKIN LESIONEmily Urszula Parikh MD Work Phone: Start: 56-05-7194Csmjm fingr minimum 2 viewsMichael T Sigala DO Work Phone: Start: 82-69-8719Slldc fingr minimum 2 viewsMichael T Sigala DO Work Phone: Start: 45-16-4090CZVGEPAKAES SKIN LESIONEmily Urszula Parikh MD Work Phone: Start: 77-48-3737Xtvlk fingr minimum 2 viewsMichael T Sigala DO Work Phone: Start: 06-98-4898EKFH BMPMichael T Sigala DO Work Phone: Start: 82-31-5562Huuwc wrist complete minimum 3 views Margo Mcgowan Sigala DO Work Phone: Start: 02-34-6323Yccjcycna aspir&/inj small jt/bursaw/us rec rprtMicmarcosleilani Sigala DO Work Phone: Start: 43-75-8990HM ECHO DOPPLER COMPLETEGeneric External Data ProviderStart: 15-17-4142Mjyemtvx blood count with white cell differential, automatedSarai Patricio SENIOR SECURITY ANALYST Work Phone: Start: 17-92-7240Ytsapvyyirpvs metabolic panelSarai Patricio SENIOR SECURITY ANALYST Work Phone: Start: 10-08-4059Akmvx panelSarai Patricio SENIOR SECURITY ANALYST Work Phone: Start: 88-69-3181QSWMPTKE STATUS REPORTCaelma Patricio SENIOR SECURITY ANALYST Work Phone: Start: 71-81-3943KSHNJSQBVDC SKIN LESIONMelissa Parikh MD Work Phone: Plan of Treatment DateCare ActivityDetailAuthorStart: 04-22-2026Medicare Annual Wellness (AWV) Medicare Annual Wellness (AWV)[facility]OM[facility] HealthcareStart: 09-16-2025 End: 99-94-1512Lvtvoit encounter cqqmqgmum71/21/2026 10:30 AM EDT Office Visit [facility] [address] [place] [address] Daysi Mccrary NP [address] [place], [place] [id number] [facility] MedicineStart: 09-10-2025 End: 40-32-8807Bdedejx encounter bbunohbxi02/15/2026 9:45 AM EDT Office Visit [facility] [address] [place] [address] Melissa Parikh MD [address] [place] [address] N[facility]S [place] [facility]ermatologyStart: 03-18-2025 End: 38-82-2072Jjbqyry encounter procedureNOMS SWS IMStart: 03-12-2025 End: 38-84-2912Gimboai encounter procedureNOMS SWS DERMComment on above:Arrived Start: 97-31-4126VIQMY-19 Vaccine ( season)COVID-19 Vaccine ( season)NOMS HealthcareStart: 13-31-8266Pzlbablen vaccinationInfluenza Vaccine (#1)NOMS HealthcareStart: 11-21-2024 End: 06-55-4780Hcqejpf encounter dosklbpgo98/26/2025 10:00 AM EDT Office Visit [facility] [address] [place] [phone] Margo Sigala, DO [address] [place] [address] [facility] OR[facility]OStart: 09-24-2024 End: 63-39-0771Akfhkyt encounter egtrldfvx86/29/2025 10:00 AM EDT Office Visit [facility] [address] [place] [phone] Margo Sigala, DO [address] [place] [address] [facility]Start: 09-17-2024 End: 15-34-2075Ebccibc encounter procedureNOMS SWS IMStart: 04-15-2025Medicare Annual Wellness (AWV)Medicare Annual Wellness (AWV)NOMS HealthcareStart: 09-09-2024 End: 73-40-8841Ujyvexw encounter procedureNOMS SWS DERMComment on above:Arrived Start: 08-27-2024 End: 50-26-4230Byvrvcm encounter xssswoyaf04/01/2025 2:00 PM EDT Office Visit [facility] [address] [place] [phone] Margo Sigala, DO [address] [place] [place] [address] NOM[facility] NB ORTHOStart: 07-26-2024 End: 54-96-5583Kluxu metabolic 1998 panel - Serum or PlasmaBasic metabolic panel Lab Routine Pre-op testing Expected: 07/26/2024 (Approximate), Expires: 2025[facility] Work Phone: Comment on above:Expected: 07/26/2024 (Approximate), Expires: 07/26/2025Start: 07-26-2024 End: 87-40-1033WFG panel - Blood by Automated countCBC Lab Routine Pre-op testing Expected: 07/26/2024 (Approximate), Expires: 07/26/2025[facility] Comment on above:Expected: 07/26/2024 (Approximate), Expires: 07/26/2025Start: 07-26-2024 End: 33-75-6368WWI 12 leadECG 12 lead ECG Routine Pre-op testing Expected: 07/26/2024 (Approximate), Expires: 07/26/2025NONH HealthcareComment on above: Expected: 07/26/2024 (Approximate), Expires: 07/26/2025Start: 07-25-2024 End: 10-69-0055Jjzrnwx encounter wbjgrizmm39/27/2025 10:30 AM EST Office Visit [facility] [address] [place] [phone] Margo Sigala, DO [address] [place] [address] Bilateral hand pain (Primary Dx)NOMS NB ORTHOComment on above:Bilateral hand pain (Primary Dx)Start: 05-15-2024 End: 40-73-0555Bzoigqi encounter mdraophmm57/18/2024 10:15 AM EST Office Visit [facility] [address] [place] [phone] Margo Sigala, DO [address] [place] [address] Bilateral hand pain (Primary Dx)[facility] Comment on above:Bilateral hand pain (Primary Dx)Start: 08-15-0527Bodskbqvn vaccinationInfluenza Vaccine (#1)NOM HealthcareComment on above:Postponed from 01/28/2024 (Patient Refused)Start: 03-19-2024 End: 78-09-9084SH Heart TransthoracicTransthoracic Echo (TTE) Complete Echocardiography Routine Rheumatic disease of heart valve Expected: 03/19/2024 (Approximate), Expires: 03/19/2026[facility] Work Phone: Comment on above:Expected: 03/19/2024 (Approximate), Expires: 03/19/2026Start: 03-19-2024 End: 99-75-0707Udkjxfn encounter akolqyecn96/22/2024 9:30 AM EDT Office Visit [facility] [address] [place] [address] Alana Milligan DO [address] [place] [address] [facility] IMStart: 2024 End: 35-86-6592Dptjcvd encounter vegvxirqb44/14/2024 10:05 AM EDT Office Visit [facility] [address] [place] [address] Melissa Parikh MD [address] [place], [place] [id number] ArrivedD[facility] DERMComment on above:ArrivedStart: 87-02-8824Ssokdpguq vaccinationInfluenza Vaccine (#1)[facility] HealthcareStart: 21-11-4858UAaH/Tdap/Td Vaccines (2 - Tdap)DTaP/Tdap/Td Vaccines (2 - Tdap)[facility] HealthcareStart: 59-87-9762Fzqs Cancer ScreeningSkin Cancer ScreeningNOJohn J. Pershing VA Medical CenterYquvhcfgbv77-vnekdririzvhiv D3 [Mass/volume] in Serum or PlasmaVitamin D 25 hydroxy Total Lab Routine Hypovitaminosis D Ordered: 09/17/2024[facility] Comment on above:Ordered: 09/17/2024polipoprotein B [Mass/volume] in Serum or PlasmaAPOLIPOPROTEIN B Lab Routine Dyslipidemia (CMS/HCC) Elevated lipoprotein A level (CMS/HCC) Ordered:09/17/2024[facility] HealthcareComment on above:Ordered: 09/17/2024BC W Auto Differential panel - BloodCBC and differential Lab Routine Medicare annual wellness visit, subsequent Ordered: 09/17/2024[facility] Work Phone: Comment on above:Ordered: 09/17/2024omprehensive metabolic 2000 panel - Serum or PlasmaComprehensive metabolic panel Lab Routine Medicare annual wellness visit, subsequent Ordered: 09/17/2024[facility] Comment on above:Ordered: 09/17/2024Lipid 1996 panel - Serum or PlasmaLipid panel Lab Routine Medicare annual wellness visit, subsequent Dyslipidemia (CMS/HCC) Elevated lipoprotein A level (CMS/HCC) Ordered: 09/17/2024[facility] CenterComment on above:Ordered: 09/17/2024Microalbumin/Creatinine panel in random UrineMicroalbumin / creatinine urine ratio Lab Routine Essential (primary) hypertension (CMS/HCC) Ordered: 09/17/2024[facility] CenterComment on above:Ordered: 09/17/2024XR Wrist - left 3 ViewsXR wrist 3+ views left Imaging Routine Bilateral wrist pain [facility] 3+ views right Imaging Routine Bilateral wrist pain 07/25/2024 10:31 AM [facility] Immunizations Immunization DateImmunizationNotesCare XlkuhogdWewxbmqn14-19-9499EDIM-ALC-8 (COVID-19) vaccine, mRNA, spike protein, LNP, PF, 50 mcg/0.5 mLAmy Warchol SENIOR SECURITY ANALYST Work Phone: [facility] CenterQefsotczds44-85-8073Athlcphn trivalent influenza vaccine, adjuvanted, preservative freeAmy Warchol SENIOR SECURITY ANALYST Work Phone: [facility] CenterPcicpknpks95-48-8082idzlkkcoe virus vaccine, unspecified formulationMelissa Parikh MD Work Phone: [phone]-[facility] CenterLtljmjggbi14-61-9284WNJ, UnspecifiedRobert Vasjose carlosk DO Work Phone: [facility] CenterLbrdyqpbkl76-18-6323GQLY-YHD-1 (COVID-19) vaccine, mRNA, spike protein, LNP, PF, 50 mcg/0.5 mLRobert Vasjose carlosk DO Work Phone: [facility] CenterXzfvltempo90-07-8520Lhqsfqcrw, Seasonal, Quadrivalent, AdjuvantedMelissa Parikh MD Work Phone: [phone]-[facility] CenterOgbewjxprb04-28-7317gtnrdhi and diphtheria toxoids, adsorbed, preservative free, for adult use (5 Lf of tetanus toxoid and 2 Lf of diphtheria toxoid)Melissa Parikh MD Work Phone: [phone]-[facility] CenterLfvprgfsxz41-50-6052jgwabvhwd virus vaccine, unspecified formulationMelissa Parikh MD Work Phone: [phone] [place], [place] [address]Frqwmpanrg46-08-2645Xfrsjjzrd, High-dose Seasonal, Quadrivalent, Preservative FreeMelissa Parikh MD Work Phone: [phone] [place], [place] [address]Bsscdvbpuk63-01-2714mtatjzinx, high dose seasonal, preservative-freeMelissa Parikh MD Work Phone: [phone] [place], [place] [address]Gyuctvotpp65-14-2753Gmyzyce SARS-CoV-2 VaccinationMelissa Parikh MD Work Phone: [phone] [place], [place] [address]Cqhhpstwox87-81-8740hwrpnb vaccine, unspecified formulationMelissa Parikh MD Work Phone: [phone] [place], [place] [address]Fueekwqram05-24-2210SNCK-HxC-2, UnspecifiedMelissa Parikh MD Work Phone: [phone] [place], [place] [address]Ehxlxrtbno24-61-9692Ydtwrjpx trivalent influenza vaccine, adjuvanted, preservative freeMelissa Parikh MD Work Phone: [phone] [place], [place] [address]Egazosuoxk54-91-9486mtkgowzntuyz conjugate vaccine, 13 valentEvikki Parikh MD Work Phone: [phone] [place], [place] [address]Ukngpqxlqa46-33-8820Uyvcawgr trivalent influenza vaccine, adjuvanted, preservative Sriram Parikh MD Work Phone: [facility] CenterUdesdmskxk66-55-7583uqemcehzugsl polysaccharide vaccine, 23 valentEmialyssa Parikh MD Work Phone: [facility] CenterRrevmfrglc69-03-0576xmllzajmi, seasonal, injectableMelissa Parikh MD Work Phone: [facility] Payers DatePayer CategoryPayerPolicy [id number]-pay2022MedicaidAETNA MEDICARE ADVANTAGE [id number] Health [id number] 2.0.1.883200.3.579.2.727 [id number] 2.0.1.777009.3.57[id number] 2.0.1.251072.3.57[id number] 2.0.1.027342.3.57[id number] 2.16840.1.776311.3.57[id number] 2.840.1.186168.3.57[id number] 2.16.840.1.580046.3.57[id number] 2.16.840.1.945294.3.57[id number] 2.16.840.1.446470.3.57[id number] 2.16.840.1.649725.3.57[id number] 2.16.840.1.475718.3.57[id number] 2.16.840.1.290323.3.57[id number] 2.16.840.1.051489.3.57[id number] 2.16.840.1.198760.3.57[id number] 2.16.840.1.227905.3.57[id number] 2.16.840.1.53[id number] 2.16.840.1.583944.3.579.2.531 Social History DateTypeDetailFacilityTobacco smoking status NHISUnknown if ever smokedGrant Hospital Work Phone: Start: 86-64-3345Qnp Assigned At [facility] Hospitaltart: 11-29-2023 End: 95-90-1922Knelmru smoking status NHISEx-smokerNONH Healthcare End: 32-57-7419Bjoagpp of tobacco useCurrent smokerNONH Healthcare End: 79-57-8056Caeysfu of tobacco useCigarette SmokerLDS HOSPITAL HealthcareStart: 70-37-7303Szbvcwc use and exposureSmokeless tobacco non-userNONH Healthcare Start: 11-29-2023 End: 53-49-4117Fcakgwkyo beverage intakeCurrent drinker of alcohol (finding)[facility] HealthcareStart: 09-11-2023 End: 70-70-3928Hdrwvwa of Social functionNONH HealthcareStart: 09-11-2023 End: 31-07-6397Zfmfklg Use Disorder Identification Test - Consumption [AUDIT-C] [facility] HealthcareHow often to you have a drink containing alcohol?2-4 times a monthNONH HealthcareHow many standard drinks containing alcohol do you have on a typical day?1 or 2NOMS HealthcareHow often do you have 6 or more drinks on 1 occasion?NeverNONH HealthcareStart: 70-87-1651Kspvzhm Commentcaffeine: 2-3 cups per dayLDS HOSPITAL HealthcareStart: 08-44-8287Akcime identityIdentifies as male gender (finding)[facility] HealthcareStart: 53-14-8397Yumqzv orientationHeterosexual (finding)[facility] CenterStart: 91-08-9603WdeBphuKCNJ Healthcare Functional Status RatgFufnkjedyyPgsslxBqlbafub69-65-1773Rsvjrrq Health Questionnaire 2 item (PHQ- 2) [Reported][facility] CenterJzmgbnpzac08-73-8143Jdlulfg Health Questionnaire 2 item (PHQ- 2) [Reported][facility] CenterRkwfaaqnsq29-98-3900Izfujz interest or pleasure in doing thingsNot at all 09/10/2024 10:01 AM EDT Mychart, Generic Not at allMer[facility], formerly [facility]'s [facility] CenterEkportbjzc38-20-0277Wmbboxv down, depressed, or hopelessNot at all 09/10/2024 10:01 AM EDT Mychart, Generic Not at [facility] Clinical Notes 2024 to 03-18-2025 Note Date & CzkbPgnhZegymdjy32-86-4460 History of Present illness Narrative* Alana Milligan, DO - 03/18/2025 10:30 AM EDT Images from the original note were not included. Patient presents today for 6M HPI: HPI History of Present Illness The patient presents for hypertension, history of malignant melanoma and squamous cell cancer, degenerative arthritis with CMC arthritis, and aortic stenosis. She has a history of malignant melanoma and squamous cell cancer and follows up with dermatology. She has degenerative arthritis with CMC arthritis and follows up with Dr. Sigala. She has aortic stenosis and follows up with cardiology in [place]. HISTORIES: PAST MEDICAL HISTORY: Past Medical History: Diagnosis Date Acute medial meniscal injury of left knee 11/27/2022 Hyperlipidemia Hypertension Malignant melanoma (HCC) of right shoulder Rheumatic disease of heart valve SURGICAL HISTORY: Past Surgical History: Procedure Laterality Date CARDIAC CATHETERIZATION 2019 CARDIAC SURGERY 09/27/2019 heart cath HAND SURGERY 08/16/2024 R basilar thumb arthroplasty-MTP KNEE CARTILAGE SURGERY Left 02/22/2023 Dr. sigala SKIN CANCER EXCISION 2021 melanoma removal TONSILLECTOMY 05/29[birth year]1947 SOCIAL HISTORY: Social History Tobacco Use Smoking status: Former Current packs/day: 0.00 Types: Cigarettes Quit date: 02/26/1977 Years since quittin.0 Smokeless tobacco: Never Substance Use Topics Alcohol use: Yes Comment: caffeine: 2-3 cups per day Drug use: Never Depression: Not at risk (09/10/2024) PHQ-2 PHQ-2 Score: 0 FAMILY HISTORY: Family History Problem Relation Name Age of Onset Mental illness Mother Chari Hypertension Mother Chari Hyperlipidemia Mother Chari Stroke Mother Chari Alzheimer's disease Mother Chari Heart disease Father Ag Arthritis Father Ag Cancer Maternal Grandmother Stacy MEDICATIONS: Current Outpatient Medications Medication Instructions amLODIPine (Norvasc) 10 MG tablet TAKE 1 TABLET BY MOUTH EVERY DAY FOR 90 DAYS Cholecalciferol (Vitamin D) 50 MCG (1999) capsule 1 capsule eplerenone (Inspra) 50 MG tablet TAKE 1 TABLET BY MOUTH IN THE EVENING. TAKE WITH MEALS. pravastatin (PRAVACHOL) 40 mg, Oral, Nightly telmisartan-hydroCHLOROthiazide (MIcarDIS HCT) 80-25 MG tablet 1 tablet, Oral, Every morning ALLERGIES: No Known Allergies PHYSICAL EXAM: Visit Vitals Smoking Status Former BP Readings from Last 3 Encounters: 09/17/24 130/70 03/19/24 131/70 09/11/23 120/72 Wt Readings from Last 3 Encounters: 11/21/24 170 lb 09/24/24 170 lb 09/17/24 170 lb Physical Exam Physical Exam Younger appearing Carotids normal , no bruits Hearing normal Cognition normal Mood upbeat Gait/balance/gait speed normal No lymphadenopathy No thyromegaly Apical impulse nondiffuse, HRRR grade 2 crescendo/decrescend Results Component Ref Range & Units (hover) 6 mo ago 12 mo ago Cholesterol, Total 158 173 Triglycerides 94 87 HDL Cholesterol 62 71 VLDL Cholesterol Akhil 17 16 LDL Chol Calc (NIH) 79 ASSESSMENT AND PLAN: Assessment & Plan 1. Hypertension. 2. History of malignant melanoma and squamous cell cancer. She follows up with dermatology. 3. Degenerative arthritis with CMC arthritis. She follows up with Dr. Sigala. 4. Aortic stenosis. She follows up with cardiology in [place]. documented in this encounterMer[facility] CenterNyxmuatfki03-96-8465 Instructions* Patient Instructions* Teena Almaguer LPN - 03/18/2025 10:30 AM EDT ?? ATTENTION: [employer] Policy Update - Effective 10/30/24 Beginning today, our nursing team will review [employer] messages twice daily and help determine the best next steps before involving your provider. If your message requires more than a quick, simple response, a nurse will follow up to decide whether an in-person appointment is needed or if your question can be handled through secure messaging. Please note: Some more detailed or complex medical questions may result in a charge, similar to a brief office visit, if handled via [employer]. We want you to feel informed and confident when using [employer], so here are a few examples to clarify: ? No Charge (Nonbillable Messages): Medication refill requests Lab Requests Sending in provider requested data/follow-ups from visit (e.g., blood pressure, blood sugar, symptoms after treatment, report medication response) Quick questions that can be answered in a sentence or two ?? May Result in a Charge: Questions about a new medical issue that hasn t been evaluated in the past 7 days Messages that require significant provider time, medical decision-making, or new prescriptions/orders We re committed to keeping communication open, clear, and helpful, while ensuring you get the rightcare at the right time. You will be notified prior to any communication charge. Thank you for partnering with us in your health! _ ?? ATTENTION: MyCNimbuzzt Policy Update - Effective 10/30/24 Beginning today, our nursing team will review [employer] messages twice daily and help determine the best next steps before involving your provider. If your message requires more than a quick, simple response, a nurse will follow up to decide whether an in-person appointment is needed or if your question can be handled through secure messaging. Please note: Some more detailed or complex medical questions may result in a charge, similar to a brief office visit, if handled via [employer]. We want you to feel informed and confident when using [employer], so here are a few examples to clarify: ? No Charge (Nonbillable Messages): Medication refill requests Lab Requests Sending in provider requested data/follow-ups from visit (e.g., blood pressure, blood sugar, symptoms after treatment, report medication response) Quick questions that can be answered in a sentence or two ?? May Result in a Charge: Questions about a new medical issue that hasn t been evaluated in the past 7 days Messages that require significant provider time, medical decision-making, or new prescriptions/orders We re committed to keeping communication open, clear, and helpful, while ensuring you get the rightcare at the right time. You will be notified prior to any communication charge. Thank you for partnering with us in your health! documented in this encounterMercy [facility] CenterCcmftgeynp63-41-7541 History of Present illness Narrative* Melissa Parikh MD - 03/12/2025 10:00 AM EDT Skin Check Location: Patient requests a full body skin examination Dermatologic history: history of Actinic Keratosis, history of Melanoma Last visit: 6 months ago Melanoma History: Location: Right shoulder Date of Melanoma Dx: 03/22/2022 Type: Malignant Melanoma lentigo maligna Breslow's Depth: 0.2 mm Mitotic rate: 0/mm squared Ulceration: Not identified Melanoma Treatment: Type Wide excision by Dr. Barbosa Patient denies fatigue, shortness of breath, enlarged lymph nodes, unintentional weight loss, or abdominal pain today. Established patient All pertinent medical history, medications, and allergies were reviewed. General Exam: alert, oriented to person, place, and time, normal affect, well appearing Unaccompanied Scalp, Examined , exam limited by hair Right leg Examined Head, Face Examined , Exam limited by mustache Left leg Examined Neck Examined Right foot Examined Chest Examined Left foot Examined Back Examined Buttocks Examined Patient kept underwear on Abdomen Examined Digits,nails: Examined Right arm Examined Left arm Examined Lymphatics: Examined Hands Examined no cervical lymphadenopathy, no supraclavicular lymphadenopathy, no axillary lymphadenopathy Skin Exam 1. SEBORRHEIC KERATOSIS Generalized Stuck on verrucous, li-brown papules and plaques. Patient was counseled regarding these benign growths. Removal is normally not necessary, but they may be removed if they are symptomatic or for cosmetic reasons. 2. LENTIGINES Generalized Scattered li macules in sun-exposed areas. The patient was informed that lentigines are benign pigmented lesions that occur on sun-exposed andsun-damaged skin. No treatment is necessary. Recommended regular use of broad spectrum sunscreen SPF 30 or higher. Handout given to patient. 3. ACTINIC KERATOSIS (22) Chest - Medial (Center), Left Anterior Mandible, Left Buccal Cheek (2), Left Forearm - Posterior (2), Left Forehead, Left Parotid Area (2), Left Posterior Mandible, Left Temporal Scalp, Left Tragus, Left Zygomatic Area, Right Anterior [place], Right Buccal Cheek, Right Forearm - Posterior, Right Forehead, Right Hand - Posterior, Right Malar Cheek, Right Parotid Area, Right Zygomatic Area (2) Erythematous scaly papules Patient was counseled regarding these sun-induced growths that can develop into squamous cell carcinoma if left untreated. Discussed treatment with cryotherapy. It was emphasized that any treated lesions that fail to resolve should be re- evaluated. Cryotherapy performed today; see procedure note Diagnosis: Actinic keratosis Indication: Precancerous Location: see skin exam Consent: Verbal consent was obtained and risks were discussed, including, but not limited to risks of scarring, darker or accounts specialist pigmentary changes, recurrence, incomplete removal and infection. Method: Liquid nitrogen was used to treat the lesion(s) with two 5-10 second freeze-thaw cycles. Eyes were shielded using cotton pad during procedure Number of lesions treated: 22 Post-procedure instructions: Instructions were given orally and in writing. The office will be contacted if the lesion fails to resolve despite treatment, or if a side effect develops such as abnormal crusting, scabbing, redness or tenderness - Cryotherapy, skin lesion - Chest - Medial (Center), Left Anterior Mandible, Left Buccal Cheek (2), Left Forearm - Posterior (2), Left Forehead, Left Parotid Area (2), Left Posterior Mandible, Left Temporal Scalp, Left Tragus, Left Zygomatic Area, Right Anterior [place], Right Buccal Cheek, Right Forearm - Posterior, Right Forehead, Right Hand - Posterior, Right Malar Cheek, Right Parotid Area, Right Zygomatic Area (2) 4. HISTORY OF MALIGNANT MELANOMA OF SKIN Right Shoulder - Posterior No evidence of recurrence at melanoma scar. The patient was counseled that scars from excisional sites of melanoma should be monitored closely for recurrence. The patient was instructed to contact the office for any new, changing, or symptomatic moles. The patient was also instructed to contact the office for any new lesions that develop within or around the previous melanoma scar. Next Visit: 6 months documented in this encounterMer[facility] CenterVamflwvwtk36-83-2853 History of Present illness Narrative* Margo Sigala, - 11/21/2024 10:00 AM EDT Chief complaint: S/P left basilar thumb interpositional tendon arthroplasty-routine postoperative visit History: S/P CMC thumb interpostional tendon arthroplasty, doing well. Motion and pain improving.. Starting to golf and do more chores around the house. Physical Exam: Inspections shows minimal swelling. Incision is clean, dry and intact. Mild to modrate stiffness and weakness as expected. No signs of thumb instability. No signs of infection or blood clot. Pain symptoms improved. Xrays: Three view ,AP, lateral and oblique left wrist xray in the office saved to the permanent record today. Shows stable position and alignment of the bony arthroplasty and graft position. No sign of instability. No significant shortening. Images reviewed with the patient at length. Assessment: S/P left basilar thumb tendon interpositional arthroplasty -final post operative visit Treatment Plan: The nature of the findings were discussed at length. Thumb spica bracing can be weaned off. Progression of leather scrubber and strength exercises. No restrictions, ring and little finger can be engaged with thumb opposition. Vitamin E lotion massage exercises prn. Etiology of scar tissue formation reviewed and will lessen over time. Potential of radial sensory neuritis reviewed. Cryptanalyst strength and return expectations reviewed, with improvement up to 4-9 months.. OT was offered and discussed. F/U will be prn. All questions answered. documented in this encounterMer[facility] CenterOlfzzrnwkh26-84-0500 History of Present illness Narrative* Colette Arguelles - 09/24/2024 10:00 AM EDT Images from the original note were not included. Jesi Montes is a 79 y.o. male presents with chief complaint of PO < 90 days status post right basilar thumb interpositional. HPI: eJsi is here for his second postoperative visit. Pain is controlled. He is happy with the progressmade. He has been wearing the brace. There has been no new falls, traumas or injuries reported. He is emotional today and tired with the passing yesterday evening of his dog. SUBJECTIVE: MEDICATIONS: Current Outpatient Medications Medication Instructions amLODIPine (Norvasc) 10 MG tablet TAKE 1 TABLET BY MOUTH EVERY DAY FOR 90 DAYS Cholecalciferol (Vitamin D) 50 MCG (1999) capsule 1 capsule eplerenone (Inspra) 50 MG tablet TAKE 1 TABLET BY MOUTH IN THE EVENING. TAKE WITH MEALS. pravastatin (PRAVACHOL) 40 mg, Oral, Nightly telmisartan-hydroCHLOROthiazide (MIcarDIS HCT) 80-25 MG tablet 1 tablet, Oral, Every morning ALLERGIES: No Known Allergies SURGICAL HISTORY: Past Surgical History: Procedure Laterality Date CARDIAC CATHETERIZATION 2018 CARDIAC SURGERY 09/27/2019 heart cath HAND SURGERY 08/16/2024 R basilar thumb arthroplasty-MTP KNEE CARTILAGE SURGERY Left 02/22/2023 Dr. sigala SKIN CANCER EXCISION 2021 melanoma removal TONSILLECTOMY 05/29[birth year]1947 FAMILY HISTORY: Family History Problem Relation Name Age of Onset Mental illness Mother Chari Hypertension Mother Chari Hyperlipidemia Mother Chari Stroke Mother Chari Alzheimer's disease Mother Chari Heart disease Father Ag Arthritis Father Ag Cancer Maternal Grandmother Stacy SOCIAL HISTORY: Social History Tobacco Use Smoking status: Former Current packs/day: 0.00 Types: Cigarettes Quit date: 02/26/1977 Years since quittin.6 Smokeless tobacco: Never Substance Use Topics Alcohol use: Yes Comment: caffeine: 2-3 cups per day Drug use: Never Depression: Not at risk (09/10/2024) PHQ-2 PHQ-2 Score: 0 REVIEW OF SYMPTOMS: The review of systems, history and current medications list are all reviewed today. OBJECTIVE: Visit Vitals Ht 5' 7 Wt 170 lb BMI 26.63 kg/m Smoking Status Former BSA 1.91 m Physical Exam On physical exam, the thumb incisions are clean, dry and intact. His range of motion shows mild stiffness as expected. Swelling is very minimal. There is no rash or infection. No deformity, no instability. Strength is improving. Grind test is negative. Three view x-rays, AP, lateral and oblique views saved to the permanent record shows stable position and alignment of the interpositional. There is no sign of subluxation or dislocation or loosening seen. ASSESSMENT AND PLAN: Assessment/Plan Status post right basilar thumb interpositional tendon arthroplasty. The nature of the findings were discussed at length. Ice, Tylenol and topicals were all reviewed. Cryptanalyst exercises were discussed. We discussed the role of occupational therapy if having trouble with resumption of normal activities. Follow up at this point will be in two months for repeat x-ray and exam. Cosigned by Margo Sigala DO at 09/27/2024 10:27 AM EDT [facility]Mer[facility] [facility] [id number] Instructions* Patient Instructions* Daysi Mccrary NP - 09/17/2024 10:00 AM EDT PATIENT EDUCATION: Medicare wellness Patient here for annual Medicare Wellness visit. Demographics were updated. Self-assessment was completed. Past medical, family and social history were updated. The medication list, including supplements being taken, was updated. A list of other current medical providers was established/updated. Time was spent discussing health maintenance issues, ordering proper testing, and schedule was provided regarding recommended screening. We discussed safety issues and fall risk. Depression screening was completed and addressed. Cognitive function was assessed by direct observation and assessment of ability to perform ADL's and IADL's was done. We also discussed Advanced Directives and code status. The current BMI was provided along with an education packet regarding healthy living and maintenanceof a healthy weight. The BMI will cont to be monitored at routine office visits as well. Major riskfactors for chronic disease including family history were discussed . HTN Possible complications of uncontrolled hypertension include stroke, congestive heart failure, heartattack, loss of vision, and kidney failure. Please complete labs as directed and call our office inone week if you have not received your lab results. Patient is encouraged to reduce salt in diet and to exercise at least 150 minutes per week. Avoid tobacco use and alcohol consumption. Please take all medications as prescribed. HLD Reviewed most recent lipid panel or ordered new labs if needed. It is important to maintain LDL at specified goal. The risks associated with hyperlipidemia including stroke and heart attack. Take medications as directed. Dietary modifications include decreasing red meat consumption, decreasing alcohol consumption, avoiding fried fatty foods and cakes, cookies, and sweets. You are encouraged to increase fiber in your diet and eat a diet rich in omega-3. You are encouraged to exercise at least 150 minutes weekly. Barriers to the plan of care have been addressed. Obtain labs as directed and callour office if you have not received the lab results within one week. Follow up as directed. Patienthas been given a copy of the plan of care. Low vitamin D Take medication as directed. Encouraged to obtain 20 minutes of direct sunlight daily during peak hours of sunlight. Consume food sources high in Vitamin D. Repeat labs as instructed. documented in [facility] [id number] History of Present illness Narrative* Melissa Parikh MD - 09/09/2024 10:00 AM EDT Skin Check Location: Patient requests a full body skin examination Dermatologic history: history of Actinic Keratosis, history of Melanoma Last visit: 6 months ago Established patient Melanoma History: Location: Right shoulder Date of Melanoma Dx:03/22/2022 Type Malignant Melanoma Breslow's Depth 0.2 mm Mitotic rate 0/mm squared Ulceration Not identified Melanoma Treatment: Type Wide excision by Dr. Barbosa Lesions: Location: face/ears/chest Duration: months Quality: denies pain, denies itch, denies bleeding Modifying factors: aggravated by picking Associated symptoms: red, rough, scaly Treatments: none All pertinent medical history, medications, and allergies were reviewed. General Exam: alert, oriented to person, place, and time, normal affect, well appearing Unaccompanied Scalp, Examined Right leg Examined Head, Face Examined , Exam limited by mustache Left leg Examined Neck Examined Right foot Examined Chest Examined Left foot Examined Back Examined Buttocks Examined Abdomen Examined Digits,nails: Examined Right arm Examined Left arm Examined Lymphatics: Examined Hands Examined no cervical lymphadenopathy, no supraclavicular lymphadenopathy, no axillary lymphadenopathy Skin Exam 1. SEBORRHEIC KERATOSIS Generalized Stuck on verrucous, li-brown papules and plaques. Patient was counseled regarding these benign growths. Removal is normally not necessary, but they may be removed if they are symptomatic or for cosmetic reasons. 2. LENTIGINES Generalized Scattered li macules in sun-exposed areas. The patient was informed that lentigines are benign pigmented lesions that occur on sun-exposed andsun-damaged skin. No treatment is necessary. Recommended regular use of broad spectrum sunscreen SPF 30 or higher. Handout given to patient. 3. ACTINIC KERATOSIS (20) Left Anterior Mandible, Left Anterior Neck, Left Antihelix, Left Breast, Left Buccal Cheek (2), Left Forearm - Posterior (2), Left Parotid Area (2), Left Wrist - Posterior, Left Zygomatic Area, RightAnterior Mandible, Right Anterior Neck, Right Forearm - Posterior, Right Nasal Sidewall, Right Parotid Area, Right Posterior Mandible, Right Preauricular Area, Right Zygomatic Area Erythematous scaly papules Patient was counseled regarding these sun-induced growths that can develop into squamous cell carcinoma if left untreated. Discussed treatment with cryotherapy. It was emphasized that any treated lesions that fail to resolve should be re- evaluated. Cryotherapy performed today; see procedure note Diagnosis: Actinic keratosis Indication: Precancerous Location: see skin exam Consent: Verbal consent was obtained and risks were discussed, including, but not limited to risks of scarring, darker or accounts specialist pigmentary changes, recurrence, incomplete removal and infection. Method: Liquid nitrogen was used to treat the lesion(s) with two 5-10 second freeze-thaw cycles. Eyes were shielded using cotton pad during procedure Number of lesions treated: 20 Post-procedure instructions: Instructions were given orally and in writing. The office will be contacted if the lesion fails to resolve despite treatment, or if a side effect develops such as abnormal crusting, scabbing, redness or tenderness Cryotherapy, skin lesion - Left Anterior Mandible, Left Anterior Neck, Left Antihelix, Left Breast,Left Buccal Cheek (2), Left Forearm - Posterior (2), Left Parotid Area (2), Left Wrist - Posterior,Left Zygomatic Area, Right Anterior Mandible, Right Anterior Neck, Right Forearm - Posterior, RightNasal Sidewall, Right Parotid Area, Right Posterior Mandible, Right Preauricular Area, Right Zygomatic Area 4. MULTIPLE BENIGN MELANOCYTIC NEVI OF BOTH UPPER EXTREMITIES, BOTH LOWER EXTREMITIES, AND TRUNK Generalized Li to brown macules and papules with similar morphologic features Counseled regarding these benign growths. Rarely, a nevus can develop into malignant melanoma, so any changing nevi should be promptly re-evaluated. 5. HISTORY OF MALIGNANT MELANOMA OF SKIN Right Shoulder - Posterior No evidence of recurrence at melanoma scar. The patient was counseled that scars from excisional sites of melanoma should be monitored closely for recurrence. The patient was instructed to contact the office for any new, changing, or symptomatic moles. The patient was also instructed to contact the office for any new lesions that develop within or around the previous melanoma scar. Next Visit: 6 months skin check documented in [facility]Mer[facility] [id number] History of Present illness Narrative* Margo Sigala DO - 08/27/2024 2:00 PM EDT Chief complaint: S/P rt basilar thumb interpositional tendon arthroplasty-1st postoperative visit History: S/P CMC thumb interpostional tendon arthroplasty, doing well. Motion and pain improving. Did well with anesthesia. Physical Exam: Inspections shows mild swelling and ecchymosis. Incision is clean, dry and intact. Mild to moderatestiffness and weakness as expected. No signs of thumb instability. No signs of infection or blood clot. Pain symptoms improved. Xrays: Three view ,AP, lateral and oblique wrist xray in the office saved to the permanent record today. Shows stable position and alignment of the bony arthroplasty and graft position. No sign of instability. No significant shortening. Images reviewed with the patient at length. Assessment: S/P rt basilar thumb tendon interpositional arthroplasty -first post operative visit Treatment Plan: The nature of the findings were discussed at length. Thumb spica bracing 4-6 weeks all the time except dinner, TV and bathing.. Progression of leather scrubber and strength exercises. No restrictions, ring and little finger should be avoided with thumb opposition. Vitamin E lotion massage exercises twice a dayuntil follow up appointment.. Etiology of scar tissue formation reviewed and will lessen over time.Potential of radial sensory neuritis reviewed. Cryptanalyst strength and return expectations reviewed, withimprovement up to 4-9 months.. OT was offered and discussed. F/U will be 4-6 weeks for xray and exam. All questions answered. documented in this encounterMer[facility], [facility] [id number] History of Present illness Narrative* Colette Arguelles - 07/25/2024 10:30 AM EST Images from the original note were not included. GENERAL HISTORY AND PHYSICAL: NAME: Jesi Montes : 1945 CHIEF COMPLAINT: Bilateral basilar thumb pain, right worse than left. HISTORY OF PRESENT ILLNESS: Jesi is here for his england trapezial end stage osteoarthritis of both thumbs. He has tried numerous injections, ice, Tylenol and topicals. He has tried anti-inflammatory. He has tried cortisone injections. The last injection provided little to no relief. He still continues to have pain, swelling and stiffness, irritability. He has no fever, chills or constitutional symptoms. PAST MEDICAL HISTORY: Past Medical History: Diagnosis Date Acute medial meniscal injury of left knee 11/27/2022 Hyperlipidemia (CMS/HCC) Hypertension (CMS/HCC) Malignant melanoma (CMS/HCC) of right shoulder Rheumatic disease of heart valve PAST SURGICAL HISTORY: Past Surgical History: Procedure Laterality Date CARDIAC CATHETERIZATION 2019 CARDIAC SURGERY 09/27/2019 heart cath KNEE CARTILAGE SURGERY Left 02/22/2023 Dr. sigala SKIN CANCER EXCISION 2021 melanoma removal TONSILLECTOMY 05/29/1947 SOCIAL HISTORY: Social History Occupational History Occupation: retired Tobacco Use Smoking status: Former Current packs/day: 0.00 Types: Cigarettes Quit date: 02/26/1977 Years since quittin.4 Smokeless tobacco: Never Substance and Sexual Activity Alcohol use: Yes Comment: caffeine: 2-3 cups per day Drug use: Never Sexual activity: Yes Partners: Female control/protection: None ALLERGIES: No Known Allergies MEDICATIONS: Current Outpatient Medications Medication Instructions amLODIPine (Norvasc) 10 MG tablet TAKE 1 TABLET BY MOUTH EVERY DAY FOR 90 DAYS Cholecalciferol (Vitamin D) 50 MCG (1999) capsule 1 capsule eplerenone (Inspra) 50 MG tablet TAKE 1 TABLET BY MOUTH IN THE EVENING. TAKE WITH MEALS. pravastatin (PRAVACHOL) 40 mg, Oral, Nightly telmisartan-hydroCHLOROthiazide (MIcarDIS HCT) 80-25 MG tablet 1 tablet, Oral, Every morning REVIEW OF SYSTEMS: The review of systems, history and current medications list are all reviewed today. Vitals: Visit Vitals Ht 5' 7 Wt 166 lb BMI 26.00 kg/m Smoking Status Former BSA 1.89 m PHYSICAL EXAM: On physical exam, he is alert and oriented. Vital signs are stable. The bilateral thumb joints have large prominent hypertrophic changes. Grind test is positive with crepitance and pain, right worse than left. He does have a palmaris longus tendon. There is a moderate amount of stiffness of the thumb on each side. Trigger exam is negative. Carpal tunnel exam is negative. The patient is neurovascularly intact distally. There view x-rays AP, lateral and oblique views taken of each wrist shows degenerative changes withpan trapezial involvement. This is end stage in nature. There is no acute fracture, dislocation, tumor or infection seen. Surgical History and Physical: GENERAL AND PSYCHOLOGICAL: The patient is alert and oriented for age. HEAD AND E.E.N.T.: The skull is normocephalic. There is no mass or sign of trauma. NECK: The neck is supple. There is good range of motion. There is no mass or adenopathy appreciated. The thyroid is not enlarged. CARDIAC: The heart is regular. There is no murmur or ectopy appreciated. LUNGS: Inspiratory and expiratory excursions are symmetrical. The lung jain are clear in all quadrants. ABDOMEN: The texture is soft. Bowel sounds are heard well in all quadrants. There is no tenderness to palpation. There is no organomegaly appreciated. OSTEOPATHIC AND STRUCTURAL: There is no gross evidence of kyphosis, lordosis, scoliosis, or apparent leg length discrepancy, with no acute tissue texture changes in sitting or standing positions. ASSESSMENT: Bilateral basilar thumb osteoarthritis (england trapezial). Failure of conservative and injection care. PLAN: The nature of the findings were discussed at length. Ice, Tylenol, analgesia were all reviewed. He has tried cortisone injections on several occasions. He is having progressive activities of daily living and night disruption. He does have an intact palmaris longus tendon for grafting. The natu re of the findings were discussed at length. We discussed conservative, injection and surgical management options. Management options have failed with conservative care techniques with Tylenol, ice and analgesics, anti-inflammatory as well as bracing. Injection therapy has been discussed and encountered. We discussed the role of interpositional tendon arthroplasty. We discussed graft site donor with palmaris or FCR 50% tendon. We discussed harvesting technique. We discussed interpositional tendon arthroplasty with resection of the basilar thumb joint, immobilization period of four to six weeks, stiffness, pain, thumb shortening, radial sensory neuritis, numbness and tingling, need for occupa tional therapy, aggravation of underlying arthritis of her interphalangeal joints, shortening of the thumb, instability, blood clot, pulmonary embolus, myocardial infarction, arrhythmia, stroke and were all reviewed. We discussed anesthetic options. Consent forms are signed and witnessed for basilar thumb tendon interpositional arthroplasty procedure. We will move forward in the near futureafter routine presurgical testing. Mini C arm fluoroscopy intraoperatively. I will see the patient back postoperatively for x-ray and exam. Numerous questions were answered and the patient is discharged in stable condition. Consent forms are signed and witnessed. He will undergo routine presurgicaltesting and we will move forward in the near future at the local surgery center with mini C arm fluoroscopy. I will see him back postoperatively. Consent forms are signed and witnessed. Margo Sigala D.O. Cosigned by Margo Sigala DO at 07/29/2024 3:53 PM EST documented in this encounterMercy Hospital [facility], [facility] [id number] History of Present illness Narrative* Marjorie Hamilton MA - 05/15/2024 10:15 AM ESTAssociated Order(s): S Inj/Asp: bilateral thumb MCP Post-Procedure Diagnose(s): Bilateral hand pain S Inj/Asp: bilateral thumb MCP on 05/15/2024 10:07 AM Details: 25 G needle, ultrasound-guided Medications (Right): 3 mg betamethasone acetate-betamethasone sodium phosphate 6 (3-3) MG/ML Medications (Left): 3 mg betamethasone acetate-betamethasone sodium phosphate 6 (3-3) MG/ML Outcome: tolerated well, no immediate complications Consent was given by the patient. * Colette Arguelles - 05/15/2024 10:15 AM EST Jesi Montes is a 79 y.o. male presents with chief complaint of bilateral basilar thumb pain. HPI: Jesi is here with bilateral basilar thumbs. He has pain, stiffness and irritability. He is contemplating surgical intervention. He has stiffness noted. No significant numbness or tingling. No fever,chills or constitutional symptoms. Jesi is here for his bilateral basilar thumb osteoarthritis. Hehas pain, swelling and stiffness, decreased range of motion. He is requesting cortisone injection. He has had these in the past in April which were helpful for several months. SUBJECTIVE: MEDICATIONS: Current Outpatient Medications Medication Instructions amLODIPine (Norvasc) 10 MG tablet TAKE 1 TABLET BY MOUTH EVERY DAY FOR 90 DAYS Cholecalciferol (Vitamin D) 50 MCG (1999) capsule 1 capsule eplerenone (Inspra) 50 MG tablet TAKE 1 TABLET BY MOUTH IN THE EVENING. TAKE WITH MEALS. pravastatin (Pravachol) 40 MG tablet TAKE 1 TABLET BY MOUTH EVERY DAY FOR 90 DAYS telmisartan-hydroCHLOROthiazide (MIcarDIS HCT) 80-25 MG tablet 1 tablet, Oral, Every morning ALLERGIES: No Known Allergies SURGICAL HISTORY: Past Surgical History: Procedure Laterality Date CARDIAC CATHETERIZATION 2019 CARDIAC SURGERY 09/27/2019 heart cath KNEE CARTILAGE SURGERY Left 02/22/2023 Dr. sgiala SKIN CANCER EXCISION 2021 melanoma removal TONSILLECTOMY 05/29/1947 FAMILY HISTORY: Family History Problem Relation Name Age of Onset Mental illness Mother Chari Hypertension Mother Chari Hyperlipidemia Mother Chari Stroke Mother Chari Alzheimer's disease Mother Chari Heart disease Father Ag Arthritis Father Ag Cancer Maternal Grandmother Stacy SOCIAL HISTORY: Social History Tobacco Use Smoking status: Former Current packs/day: 0.00 Types: Cigarettes Quit date: 02/26/1977 Years since quittin.2 Smokeless tobacco: Never Substance Use Topics Alcohol use: Yes Comment: caffeine: 2-3 cups per day Drug use: Never Depression: Not at risk (09/04/2023) PHQ-2 PHQ-2 Score: 0 REVIEW OF SYMPTOMS: The review of systems, history and current medications list are all reviewed today. OBJECTIVE: Visit Vitals Ht 5' 7 Wt 166 lb BMI 26.00 kg/m Smoking Status Former BSA 1.89 m Physical Exam On physical exam, he is alert and oriented. Vital signs are stable. He has some dog scratches to the dorsal right hand and forearm from his Steel Retriever. There is no infection. He has moderate prominence of the basilar thumb joint. Tenderness is noted of the basilar thumb joint with crepitation. There is a positive grind test. No instability. Carpal, cubital and Guyon's and trigger exam is negative bilaterally. X-rays and imaging permanently saved to the patient's record were reviewed, three views each shows advanced degenerative changes of the basilar thumb joint. There is no acute fracture, dislocation, tumor or infection seen. ASSESSMENT AND PLAN: Assessment/Plan Bilateral basilar thumb osteoarthritis. The nature of the findings were discussed at length. Conservative management with ice, Tylenol and topicals were all reviewed. With consent from the patient, 0.5 cc of Betamethasone (1.5 mg of Betamethasone sodium phosphate and 1.5 mg of Betamethasone acetate) and 0.5 cc of 1% Lidocaine plain was injected to the bilateral basilar thumb joints. Limited exam identifies the basilar thumb joint, extensor complex. No sign of cyst, mass or attritional rupture. The needle was captured and saved to both basilar thumbs with the ultrasound unit bilaterally. He is aware he can have three per year. We discussed alternative management with surgical interpositional tendon arthroplasty. The perioperative course, time, healing, commitment and expectations were all reviewed. He is discharged in stable condition. Numerous questions were answered. Follow up p.r.n.. The patient was seen and examined. From the time of check in, nurse triage, vital signs, x-ray, x-ray interpretation, review of systems, comprehensive history and physical exam as well as setting up treatment plan and further management took 35 minutes. Cosigned by Margo Sigala DO at 05/16/2024 4:29 PM EST documented in this encounterMer[facility] Hospital [facility], [facility] [id number] History of Present illness Narrative* Alana Milligan DO - 03/19/2024 9:30 AM EDT Images from the original note were not included. Jesi Montes is a 79 y.o. male presents with chief complaint of Six-month office visit HPI: HPI History of Present Illness The patient is an 79-year-old male who presents for evaluation of multiple medical concerns. He reports that his knee has healed well. He has been diagnosed with arthritis in his thumb, which is being managed by Dr. Sigala. He receives cortisone injections as needed. He also mentions a history of rheumatic heart disease and is under the care of a pediatric oncology nurse in [place]. He underwent a cardiac catheterization procedure, which revealed a potential blockage. However, he was informed that he did not require a stent and was advised to continue monitoring his condition. He has a leaky valve, which has not caused any issues. He had rheumatic fever three times in his childhood, requiring two hospitalizations and one period of bed rest. He maintains an active lifestyle, walking briskly for an hour daily. He monitors his blood pressure at home, which typically measures around 140/80, with a pulse rate between 72 and 78. He is not experiencing any chest pain or shortness of breath. SOCIAL HISTORY He does not smoke. He drinks 2 beers a week on average. HISTORIES: PAST MEDICAL HISTORY: Past Medical History: Diagnosis Date Acute medial meniscal injury of left knee 11/27/2022 Hyperlipidemia (CMS/HCC) Hypertension (CMS/HCC) Malignant melanoma (CMS/HCC) of right shoulder Rheumatic disease of heart valve SURGICAL HISTORY: Past Surgical History: Procedure Laterality Date CARDIAC CATHETERIZATION 2019 CARDIAC SURGERY 09/27/2019 heart cath KNEE CARTILAGE SURGERY Left 02/22/2023 Dr. sigala SKIN CANCER EXCISION 2021 melanoma removal TONSILLECTOMY 05/29/1947 SOCIAL HISTORY: Social History Tobacco Use Smoking status: Former Current packs/day: 0.00 Types: Cigarettes Quit date: 02/26/1977 Years since quittin.0 Smokeless tobacco: Never Substance Use Topics Alcohol use: Yes Comment: caffeine: 2-3 cups per day Drug use: Never Depression: Not at risk (09/04/2023) PHQ-2 PHQ-2 Score: 0 FAMILY HISTORY: Family History Problem Relation Name Age of Onset Mental illness Mother Chari Hypertension Mother Chari Hyperlipidemia Mother Chari Stroke Mother Chari Alzheimer's disease Mother Chari Heart disease Father Ag Arthritis Father Ag Cancer Maternal Grandmother Stacy MEDICATIONS: Current Outpatient Medications Medication Instructions amLODIPine (Norvasc) 10 MG tablet TAKE 1 TABLET BY MOUTH EVERY DAY FOR 90 DAYS Cholecalciferol (Vitamin D) 50 MCG (1999 [place]) capsule 1 capsule eplerenone (Inspra) 50 MG tablet TAKE 1 TABLET BY MOUTH IN THE EVENING. TAKE WITH MEALS. pravastatin (Pravachol) 40 MG tablet TAKE 1 TABLET BY MOUTH EVERY DAY FOR 90 DAYS telmisartan-hydroCHLOROthiazide (MIcarDIS HCT) 80-25 MG tablet 1 tablet, Oral, Every morning ALLERGIES: No Known Allergies PHYSICAL EXAM: Visit Vitals BP 131/70 Pulse 75 Ht 5' 7 Wt 166 lb SpO2 98% BMI 26.00 kg/m Smoking Status Former BSA 1.89 m BP Readings from Last 3 Encounters: 03/19/24 131/70 09/11/23 120/72 03/06/23 140/72 Wt Readings from Last 3 Encounters: 03/19/24 166 lb 07/03/24 171 lb 09/11/23 171 lb Physical Exam Constitutional: Appearance: Normal appearance. Cardiovascular: Rate and Rhythm: Normal rate and regular rhythm. No extrasystoles are present. Chest Wall: No thrill. Pulses: Normal pulses. Heart sounds: Murmur (mitral regurg and ) heard. No gallop. Comments: : Normal amplitude S2, crescendo mid peak, MR: grade 2 early systolic no diastolic rumble, Pulmonary: Breath sounds: Normal breath sounds. Abdominal: General: Bowel sounds are normal. Palpations: Abdomen is soft. Musculoskeletal: General: Normal range of motion. Cervical back: Neck supple. Right lower leg: No edema. Left lower leg: No edema. Skin: General: Skin is warm. Neurological: General: No focal deficit present. Mental Status: He is alert. Psychiatric: Mood and Affect: Mood normal. Physical Exam Results ASSESSMENT AND PLAN: Diagnosis Plan 1. Primary hypertension (CMS/HCC) 2. Diastolic dysfunction 3. Rheumatic disease of heart valve 4. Arthritis of carpometacarpal (CMC) joint of left thumb 5. Arthritis of carpometacarpal (CMC) joint of right thumb Visit completed with assistance from Sarai JIMENEZ Assessment & Plan 1. Rheumatic heart disease. He reports no symptoms such as shortness of breath or chest pain. His blood pressure is well-managed, typically around 130/70 mmHg, and he maintains an active lifestyle with daily walks. He had a cardiac catheterization previously which showed no need for a stent. An echocardiogram has been orderedto monitor his condition. He will continue to monitor his blood pressure at home. He has no cardiacsymptoms 2 Thumb arthritis. He receives cortisone shots as needed for thumb arthritis. No new treatment is required at this time. Following with orthopedics for this. 3 . HTN Controlled BP at home. Continue current treatments 4. Annual blood work will be conducted today. Visit completed with assistance from Sarai JIMENEZ [id number] History of Present illness Narrative* Melissa Parikh MD - 2024 10:05 AM EDT Images from the original note were not included. Skin Check Location: Patient requests a full body skin examination Dermatologic history: history of Actinic Keratosis, history of Melanoma Last visit: 6 months ago Melanoma History: Location: Right shoulder Date of Melanoma Dx:03/22/2022 Type Malignant Melanoma Breslow's Depth 0.2 mm Mitotic rate 0/mm squared Ulceration Not identified Melanoma Treatment: Type Wide excision by Dr. Barbosa All pertinent medical history, medications, and allergies were reviewed. General Exam: alert , oriented to person, place, and time , normal affect, well appearing Unaccompanied Scalp, Examined Right leg Examined Head, Face Examined Left leg Examined Neck Examined Right foot Examined Chest Examined Left foot Examined Back Examined Buttocks Examined Abdomen Examined Digits,nails: Examined Right arm Examined Left arm Examined Lymphatics: Examined Hands Examined no supraclavicular lymphadenopathy, no axillary lymphadenopathy 1. Lentigines Scattered li macules in sun-exposed areas. The patient was informed that lentigines are benign pigmented lesions that occur on sun-exposed andsun-damaged skin. No treatment is necessary. Recommended regular use of broad spectrum sunscreen SPF 30 or higher 2. Seborrheic keratosis Stuck on verrucous, li-brown papules and plaques. Patient was counseled regarding these benign growths. Removal is normally not necessary, but they may be removed if they are symptomatic or for cosmetic reasons. 3. Multiple benign melanocytic nevi of both upper extremities, both lower extremities, and trunk Li to brown macules and papules with similar morphologic features Counseled regarding these benign growths. Rarely, a nevus can develop into malignant melanoma, so any changing nevi should be promptly re-evaluated. 4. Actinic keratosis (26) Dorsum of Nose, Left Buccal Cheek (3), Left Forearm - Posterior, Left Hand - Posterior, Left Superior [place], Left Alevism, Left Zygomatic Area (2), Right Anterior Mandible, Right Anterior Neck, Right Buccal Cheek (3), Right Dorsal Hand (3), Right Ear (2), Right Forearm - Anterior, Right Forehead, Right Lower Leg - Posterior, Right Parotid Area, Right Wrist - Posterior, Right Zygomatic Area Erythematous scaly papules Patient was counseled regarding these sun-induced growths that can develop into squamous cell carcinoma if left untreated. Discussed treatment with cryotherapy. It was emphasized that any treated lesions that fail to resolve should be re- evaluated. Cryotherapy performed today; see procedure note Diagnosis: Actinic keratosis Indication: Precancerous Location: see skin exam Consent: Verbal consent was obtained and risks were discussed, including, but not limited to risks of scarring, darker or accounts specialist pigmentary changes, recurrence, incomplete removal and infection. Method: Liquid nitrogen was used to treat the lesion(s) with two 5-10 second freeze-thaw cycles. Eyes were shielded using cotton pad during procedure Number of lesions treated: 26 Post-procedure instructions: Instructions were given orally and in writing. The office will be contacted if the lesion fails to resolve despite treatment, or if a side effect develops such as abnormal crusting, scabbing, redness or tenderness Cryotherapy, skin lesion - Dorsum of Nose, Left Buccal Cheek (3), Left Forearm - Posterior, Left Hand - Posterior, Left Superior [place], Left Alevism, Left Zygomatic Area (2), Right Anterior Mandible, Right Anterior Neck, Right Buccal Cheek (3), Right Dorsal Hand (3), Right Ear (2), Right Forearm - Anterior, Right Forehead, Right Lower Leg - Posterior, Right Parotid Area, Right Wrist - Posterior, Right Zygomatic Area 5. History of malignant melanoma of skin Right Shoulder - Posterior No evidence of recurrence at melanoma scar. The patient was counseled that scars from excisional sites of melanoma should be monitored closely for recurrence. The patient was instructed to contact the office for any new, changing, or symptomatic moles. The patient was also instructed to contact the office for any new lesions that develop within or around the previous melanoma scar. Next Visit: 6 months (skin check) documented in this encounterNON[facility] HealthcareEvaluation + Plan note No data available for this section [facility] Evaluation noteNo assessment information available [facility] Work Phone: Evaluation note* Diagnosis Seborrheic keratosis- Primary Lentigines Multiple benign melanocytic nevi of both upper extremities, both lower extremities, and trunk Actinic keratosis History of malignant melanoma of skin Personal history of malignant melanoma of skin documented in this encounter [facility]* Diagnosis Primary hypertension (CMS/HCC)- Primary Unspecified essential hypertension Diastolic dysfunction Unspecified heart disease 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, valve unspecified Arthritis of carpometacarpal (CMC) joint of left thumb Arthritis of carpometacarpal (CMC) joint of right thumb documented [facility]* Diagnosis Bilateral hand pain- Primary documented in this encounter [facility]* Diagnosis Pre-op testing- Primary Unspecified pre-operative examination Bilateral hand pain Bilateral wrist pain documented in this encounter [facility]* Diagnosis Bilateral wrist pain- Primary Bilateral hand pain documented in this encounter [facility]* Diagnosis Seborrheic keratosis- Primary Lentigines Actinic keratosis Multiple benign melanocytic nevi of both upper extremities, both lower extremities, and trunk History of malignant melanoma of skin Personal history of malignant melanoma of skin documented in this encounter [facility]* Diagnosis Medicare annual wellness visit, subsequent- Primary Essential (primary) hypertension (CMS/HCC) Unspecified essential hypertension Dyslipidemia (CMS/HCC) Other and unspecified hyperlipidemia 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 Hypovitaminosis D Unspecified vitamin D deficiency Diastolic dysfunction Unspecified heart disease documented in this encounter [facility]* Diagnosis Bilateral hand pain- Primary documented in this encounter [facility] HealthcareEvaluation note* Diagnosis Pain of right thumb- Primary documented in this encounter [facility]* Diagnosis Seborrheic keratosis- Primary Lentigines Actinic keratosis History of malignant melanoma of skin Personal history of malignant melanoma of skin documented in this encounter [facility]* Diagnosis Mitral regurgitation and aortic stenosis- Primary Mitral valve insufficiency and aortic valve stenosis Primary hypertension Unspecified essential hypertension Elevated lipoprotein A level Other disorders of lipoid metabolism Dyslipidemia Other and unspecified hyperlipidemia Exercise involving running documented in this encounter [facility] Discharge instructions No data available for this section [facility] Progress note No data available for this section [facility] Summary Purpose Family History No Family History Records Found No data available for this section No Family History Records FoundNo Family History Records FoundNo Family History Records FoundNo Family History Records FoundNo Family History Records FoundNo Family History Records Found Advance Directives Date ActivatedDate InactivatedComments09/11/2023 9:41 AMDate ActivatedDate InactivatedComments09/11/2023 9:41 AM Additional Source Comments Care Teams (unrecognized sec tion and content) Team Status: Inactive Member Role Status Dates Niels Barbosa MD Attending Provider Active Team MemberRelationshipSpecialtyStart DateEnd Date Alana Milligan DO [address] [place] [address] PCP - [employer]01/27/22 Alana Milligan DO [address] [place] [address] PCP - GeneralInternal Medicine11/09/22 Melissa Parikh MD [address] [place] [address] Referring PhysicianDermatology09/01/23 Margo Sigala DO [address] [place] [address] Referring PhysicianOrthopaedic Surgery09/01/23Team MemberRelationshipSpecialty Start DateEnd Date Alana Milligan DO [address] [place] [address] PCP - Aet01/27/22 Alana Milligan DO [address] [place] [address] PCP - GeneralInternal Medicine11/09/22 Melissa Parikh MD [address] [place] [address] Referring PhysicianDermatology09/01/23 Margo Sigala, [address] [place] [address] Referring PhysicianOrthopaedic Surgery09/01/23Team MemberRelationshipSpecialty Start DateEnd Date Alana Milligan DO [address] [place] [address] PCP - [employer]01/27/22 Alana Milligan DO [address] [place] [address] PCP - GeneralInternal Medicine11/09/22 Melissa Parikh MD [address] [place] [address] Referring PhysicianDermatology09/01/23 Margo Sigala DO [address] [place] [address] Referring PhysicianOrthopaedic Surgery09/01/23Team MemberRelationshipSpecialty Start DateEnd Date Alana Milligan DO [address] [place] [address] PCP - [employer]01/27/22 Alana Milligan DO [address] [place] [address] PCP - GeneralInternal Medicine11/09/22 Melissa Parikh MD [address] [place] [address] Referring PhysicianDermatology09/01/23 Margo Sigala DO [address] [place] [address] Referring PhysicianOrthopaedic Surgery09/01/23Team MemberRelationshipSpecialty Start DateEnd Date Alana Milligan DO [address] [place] [address] PCP - [employer]01/27/22 Alana Milligan DO [address] [place] [address] PCP - GeneralInternal Medicine11/09/22 Melissa Parikh MD [address] [place] [address] Referring PhysicianDeruttology09/01/23 Margo Sigala DO [address] [place] [address] Referring PhysicianOrthopaedic Surgery09/01/23Team MemberRelationshipSpecialty Start DateEnd Date Alana Milligan DO [address] [place] [address] PCP - [employer]01/27/22 Alana Milligan DO [address] [place] [address] PCP - GeneralInternal Medicine11/09/22 Melissa Parikh MD [address] [place] [address] Referring PhysicianDeruttology09/01/23 Margo Sigala DO [address] [place] [address] Referring PhysicianOrthopaedic Surgery09/01/23Team MemberRelationshipSpecialty Start DateEnd Date Alana Milligan DO [address] [place] [address] PCP - Aet01/27/22 Alana Milligan DO [address] [place] [address] PCP - GeneralInternal Medicine11/09/22 Melissa Parikh MD [address] [place] [address] Referring PhysicianSebringtology09/01/23 Margo Sigala DO [address] [place] [address] Referring PhysicianOrthutah state hospitaledic Surgery09/01/23Te MemberRelationshipSpecialty Start DateEnd Date Alana Milligan DO [address] [place] [address] PCP - Aet01/27/22 Alana Milligan DO [address] [place] [address] PCP - GeneralInternal Medicine11/09/22 Melissa Parikh MD [address] [place] [address] Referring PhysicianDermatology09/01/23 Margo Sigala, DO [address] [place] [address] Referring PhysicianOrthopaedic Surgery09/01/23Team MemberRelationshipSpecialty Start DateEnd Date Alana Milligan, [address] [place] [address] PCP - Aet01/27/22 Alana Milligan, [address] [place] [address] PCP - GeneralInternal Medicine11/09/22 Melissa Parikh MD [address] [place] [address] Referring PhysicianDeruttology09/01/23 Margo Sigala, DO [address] [place] [address] Referring PhysicianOrthopaedic Surgery09/01/23Te MemberRelationshipSpecialty Start DateEnd Date Alana Milligan, [address] [place] [address] PCP - Aet01/27/22 Alana Milligan DO [address] [place] [address] PCP - GeneralInternal Medicine11/09/22 Melissa Parikh MD [address] [place] [address] Referring PhysicianDermatology09/01/23 Margo Sigala, DO [address] [place] [address] Referring PhysicianOrthutah state hospitaledic Surgery09/01/23Team MemberRelationshipSpecialty Start DateEnd Date Alana Milligan, [address] [place] [address] PCP - Aet01/27/22 Alana Milligan, DO [address] [place] [address] PCP - GeneralInternal Medicine11/09/22 Melissa Parikh MD [address] [place] [address] Referring PhysicianSebringtology09/01/23 Margo Sigala, DO [address] [place] [place] [address] Referring PhysicianPikeville Medical Centeredic Surgery09/01/23Te MemberRelationshipSpecialty Start DateEnd Date Alana Milligan, [address] [place] [address] PCP - [employer]01/27/22 Alana Milligan, [address] [place] [address] PCP - GeneralInternal Medicine11/09/22 Melissa Parikh MD [address] [place] [address] Referring PhysicianDermatology09/01/23 Margo Sigala, [address] [place] [address] Referring PhysicianOrthutah state hospitaledic Surgery09/01/23Team MemberRelationshipSpecialty Start DateEnd Date Alana Milligan, [address] [place] [address] [facility] Alana Milligan, [address] [place] [address] PCP - GeneralBannernal Medicine11/09/22 Melissa Parikh MD [address] [place] [address] Referring PhysicianDeruttology09/01/23 Margo Sigala, DO [address] [place] [place] [address] Referring PhysicianR[facility] Surgery09/01/23Team MemberRelationshipSpecialty Start DateEnd Date Alana Milligan, [address] [place] [address] [facility] - [facility]/22 Alana Milligan DO [address] [place] [address] PCP - GeneralInternal Medicine11/09/22 Melissa Parikh MD [address] [place] [address] Referring PhysicianDermatology09/01/23 Margo Sigala DO [address] [facility] [place] [address] Referring PhysicianOrthopaedic Surgery09/01/23 Goals (unrecognized section and content) Goals may be documented in a n alternate section No data available for this section (unrecognized sect ion and content) No Status Records FoundNo Status Records FoundNo Status Records FoundNo Status Records FoundNo Status Records FoundNo Status Records FoundNo Status Records Found INFORMATION SOURCE (unrecogn ized section and content) DATE CREATED AUTHOR 05/08/2022 [facility] DATE CREATED AUTHOR AUTHOR'S ORGANIZ ATION 07/30/2024 [facility] DATE CREATED AUTHOR AUTHOR'S ORGANIZ ATION 07/31/2024 [facility] DATE CREATED AUTHOR AUTHOR'S ORGANIZ ATION 08/04/2024 [facility] DATE CREATED AUTHOR AUTHOR'S ORGANIZ ATION 03/19/2025 [facility] EPIC Reason for Visit (unrecogniz ed section and content) ReasonCommentsSkin CheckReasonCommentsSix-month office visitReasonCommentsPain ReasonCommentsPainReasonCommentsPost-opPO/XR R basilar thumb arthroplasty TSCNCO 08/16/24 MSReasonCommentsMedicare Annual Wellness Visit Subsequent6 Month OV ReasonCommentsFollow-upR basilar thumb arthroplastyReasonComments6 Month Office Visit FOR RECORDS PERTAINING TO PATIENTS WHO ARE OR HAVE BEEN ENROLLED IN A CHEMICAL DEPENDENCY/SUBSTANCEABUSE PROGRAM, SOME INFORMATION MAY BE OMITTED. This clinical summary was aggregated from multiple sources. Caution should be exercised in using it in the provision of clinical care. This summary normalizes information from multiple sources, and as a consequence, information in this document may materially change the coding, format and clinical context of patient data. In addition, data may be omitted in some cases. CLINICAL DECISIONS SHOULD BE BASED ON THE PRIMARY CLINICAL RECORDS. [facility] [employer] [facility]. provides no warranty or guarantee of the accuracy or completeness of information in this document.
== END 2025-04-15 09:55 | disposition home or self-care (01) ==
LOC: CARD 09:57
PROVIDERS: PCP Internal Medicine; Visit Provider Internal Medicine Cardiovascular Disease
DX: I35.0 Nonrheumatic aortic (valve) stenosis (principal)
CPT/HCPCS: 93306